=== PATIENT | female | born 1985 | race Caucasian/White ===

== ENCOUNTER 2020-07-03 15:44 | Emergency (ER) | payer OTHER ==
--- OUTSIDE RECORDS SUMMARY | 2020-07-03 15:47 | XMS REPORT | Clinical Summary ---
:1985 Author Organization [facility] Address [address] [place] [address] Care Team Providers Name Role Phone Asked, No Pcp Primary Care Provider Unavailable Allergies Active Allergy Reactions Severity Noted Date Comments Avocado Swelling 07/01/2019 No issues with latex per patient Avocado (Laurus Persea) Hives, Itching, 01/31/2018 S welling of the Swelling tongue. Dupilumab Unknown Reaction 12/30/2019 Fish Containing Hives, Rash, Swelling Low 01/31/2018 Swe lling of tongue. Products Flexon Unknown Reaction 04/14/2020 Iodine Anaphylaxis High 03/02/2020 Iodine And Iodide Anaphylaxis High 07/07/2019 Possible a llergy Containing Products with she llfish per patient [place] Swelling, Itching 01/31/2018 Tongue swe lling. Mold Unknown Reaction 04/02/2018 Nsaids (Non-Steroidal Hives, Shortness Of High 01/31/2018 Wheezing, difficulty Anti-Inflammatory Drug) Breath, Swelling breathing Swelling of the eyes. Omalizumab Anaphylaxis High 06/20/2019 Coughing, rash Orphenadrine Hcl Other (See Comments) 03/02/2020 Other Hives, Swelling, 01/31/2018 To muscle r elaxers Itching Muscle relaxer (dorflex -- mahnaz d only in [place]) . Penicillins Hives 01/31/2018 Unknown reactio n When she was younger. Pollen Extracts Swelling 07/07/2019 Shellfish Containing Anaphylaxis High 01/31/2018 Products Shellfish Derived Anaphylaxis, Swelling High 07/01/2019 Medications Medication Sig Dispensed Refills Start End Status Date Date ASMANEX HFA 200 3 Acti ve mcg/actuation HFA 9 aerosol inhaler budesonide-formoter Inhale 2 puffs 2 0 Active ol (SYMBICORT) (two) times a 160-4.5 day. mcg/actuation inhaler montelukast Take 10 mg by 0 Acti ve (SINGULAIR) 10 mg mouth nightly. tablet albuterol (PROAIR Inhale 2 puffs 0 Active HFA) 90 every 4 (four) mcg/actuation hours as needed inhaler for wheezing. tiotropium Place 1 capsule 0 Act marie (SPIRIVA) 18 mcg into inhaler and per inhalation inhale once capsule daily. LEVOFLOXACIN ORAL Take 720 mg by 0 Active mouth daily. azelastine 1 spray into 0 Active (ASTELIN) 137 mcg each nostril 2 (0.1 %) nasal spray (two) times a day. Use in each nostril as directed fluticasone 2 sprays by Each 0 A ctive propionate Nare route (FLONASE) 50 daily. mcg/actuation nasal spray UNABLE TO FIND Med Name: Pro 0 A ctive Air Respliclick epINEPHrine Inject 0.3 mg 0 Acti ve (EpiPen) 0.3 mg/0.3 into the 9 mL auto-injector shoulder, thigh, or buttocks. tiotropium bromide Inhale 2 puffs. 0 Active (Spiriva Respimat) 1.25 mcg/actuation mist albuterol (ACCUNEB) Inhale 2.5 mg. 0 07/22 Active 2.5 mg /3 mL (0.083 0 020 %) nebulizer solution budesonide U 2 ML VIA NEB 0 Acti ve (PULMICORT) 0.5 BID 0 mg/2 mL nebulizer solution cyclobenzaprine Take 5 mg by 0 A ctive (FLEXERIL) 5 mg mouth. 0 tablet fexofenadine TK 1 T PO BID 0 Act marie (ARTURO) 180 MG 0 tablet cetirizine (ZyrTEC) Take 10 mg by 0 Discontinued 10 MG tablet mouth every 020 (Med List morning. Cleanup) ondansetron ODT Take 1 tablet (8 30 tablet 0 (ZOFRAN ODT) 8 MG mg total) by 9 019 disintegrating mouth every 8 tablet (eight) hours as needed for nausea or vomiting for up to 30 days. clindamycin Take 1 capsule 21 capsule 0 Ex pired (CLEOCIN HCL) 300 (300 mg total) 9 019 MG capsule by mouth 3 (three) times a day for 7 days. acetaminophen-codei Take 1 tablet by 28 tablet 0 04/08 ne (TYLENOL WITH mouth every 4 9 019 CODEINE #3) 300-30 (four) hours as mg per needed for tabletIndications: moderate pain acute pain for up to 7 days .Acute Pain. predniSONE Take 3 tablets 15 tablet 0 Expi red (DELTASONE) 20 mg (60 mg total) by 0 020 tablet mouth daily for 5 days. albuterol (ACCUNEB) Take 3 mL (1.25 25 vial 12 12/07 1.25 mg/3 mL mg total) by 0 020 nebulizer nebulization solutionIndications every 6 (six) : Moderate asthma, hours as needed unspecified whether for wheezing for complicated, up to 30 days. unspecified whether persistent codeine-guaifenesin Take 10 mL by 100 mL 0 (GUAIFENESIN AC) mouth every 6 0 020 10-100 mg/5 mL (six) hours as liquidIndications: needed for cough acute pain for up to 7 days .acute pain. predniSONE Please take 40 32 tablet 0 Expi red (DELTASONE) 10 mg mg PO prednisone 0 020 tablet for 5 days, followed by 30 mg on days 6 &7, 20 mg on days 8 & 9, 10 mg on days 10 & 11, and 5 mg on days 12 & 13. oseltamivir Take 1 capsule 10 capsule 0 Ex pired (TAMIFLU) 75 MG (75 mg total) by 0 020 capsule mouth every 12 (twelve) hours for 5 days. Active Problems Problem Noted Date Bradycardia 02/12/2020 SOB (shortness of breath) 02/12/2020 Encounters Date Type Specialty Care Team Description 04/14/2020 Emergency Emergency Medicine Boyareddigari, Right l ower quadrant abdominal pain (Primary Dx); Vini Valladares MD Fibroids; Constipation, u nspecified constipation type 03/26/2020 Orders Only Cardiology ProviderEstuardo MD 03/25/2020 Telephone Consult Cardiology Ann Richtercar lorena Fournier MD 03/23/2020 Travel 03/15/2020 Travel 02/20/2020 Travel 02/16/2020 Travel 02/12/2020 Telemedicine Cardiology Ann Richter SOB (shortnes s of breath) (Primary Dx); MD Shantanu Bradycardia; Screening for l ipid disorders 02/06/2020 Travel 01/02/2020 Emergency Emergency Medicine Joseph Soto Moderate persistent asthma with exacerbation (Primary Dx); MD Bry Viral upper res piratory tract infection 01/02/2020 Travel 11/29/2019 Emergency Emergency Medicine Bryant Akbar Acute allergic reaction, initial encounter (Primary Dx); MD Blaine Moderate asthma , unspecified whether complicated, unspecified whether persistent 07/07/2019 Surgery Plastic Surgery Niki Hanks REVISION MD She SEPTOPLASTY, AL ITS, ENDOSCOPIC SINU S SURGERY W/ FUSI ON 07/07/2019 Anesthesia Event Plastic Surgery Erica Fang MD 07/07/2019 Hospital Encounter Plastic Surgery Niki Hanks Chron ic sinusitis; MD She Deviated nasal septum; Hypertrophy of nasal turbinates after 07/03/2019 Family History Medical History Relation Name Comments Heart attack Father Other Father Chagas Disease Stroke Father Migraines Mother Other Mother acid reflux Relation Name Status Comments Father Mother Social History Tobacco Use Types Packs/Day Years Used Date Never Smoker Smokeless Tobacco: Never Used Alcohol Use Drinks/Week oz/Week Comments Not Currently very rare Sex Assigned at Date Recorded Female 02/11/2020 11:43 AM CDT Last Filed Vital Signs Vital Sign Reading Time Taken Comments Blood Pressure 115/75 04/14/2020 6:42 PM CDT Pulse 58 04/14/2020 6:42 PM CDT Temperature 36.8 C (98.3 F) 04/14/2020 2:34 PM CDT Respiratory Rate 18 04/14/2020 6:42 PM CDT Oxygen Saturation 100% 04/14/2020 6:42 PM CDT Inhaled Oxygen Concentration - - Weight 65.8 kg (145 lb) 04/14/2020 2:34 PM CDT Height 167.6 cm (5' 6") 04/14/2020 2:34 PM CDT Body Mass Index 23.4 04/14/2020 2:34 PM CDT Plan of Treatment Health Maintenance Due Date Last Done Comments CERVICAL CANCER SCREENING 2004 INFLUENZA VACCINE 05/08/2020 Procedures Procedure Name Priority Date/Time Associated Comments Diagnosis US PELVIC STAT 04/14/2020 5:32 Results for this TRANSABDOMINAL PM CDT procedure are in the results section. US PELVIC TRANSVAGINAL STAT 04/14/2020 5:31 R esults for this PM CDT procedure are i n the results section. CT RENAL STONE PROTOCOL STAT 04/14/2020 3:54 Results for this PM CDT procedure are i n the results section. URINE CULTURE Routine 04/14/2020 3:18 Results fo r this PM CDT procedure are i n the results section. ESTIMATED GFR STAT 04/14/2020 3:10 Results fo r this PM CDT procedure are i n the results section. COMPREHENSIVE METABOLIC STAT 04/14/2020 3:10 Results for this PANEL PM CDT procedure are i n the results section. HC COMPLETE BLD COUNT STAT 04/14/2020 3:10 Re sults for this W/AUTO DIFF PM CDT procedure are i n the results section. HCG QUALITATIVE, URINE STAT 04/14/2020 3:05 R esults for this SCREEN PM CDT procedure are i n the results section. URINALYSIS STAT 04/14/2020 3:05 Results for this PM CDT procedure are i n the results section. CV CARDIAC EVENT Routine 03/26/2020 MONITOR TTE COMPLETE, W Routine 02/20/2020 3:34 SOB (shortness of Res ults for this CONTRAST, W DOPPLER PM CDT breath) procedur e are in (C8929) the results section. LIPID PANEL Routine 02/20/2020 12:00 Screening for Results fo r this AM CDT lipid disorders procedure ar e in the results section. B NATRIURETIC PEPTIDE Routine 02/20/2020 12:00 SOB (shortness of Results for this AM CDT breath) procedure are i n the results section. INFLUENZA ANTIGEN Routine 01/02/2020 9:49 Result s for this PM CDT procedure are i n the results section. RESPIRATORY PATHOGEN Routine 01/02/2020 9:48 Res ults for this PANEL PM CDT procedure are i n the results section. XR CHEST 2 VW STAT 01/02/2020 9:45 Results fo r this PM CDT procedure are i n the results section. MANUAL DIFFERENTIAL STAT 01/02/2020 9:36 Resu lts for this PM CDT procedure are i n the results section. ESTIMATED GFR STAT 01/02/2020 9:36 Results fo r this PM CDT procedure are i n the results section. B NATRIURETIC PEPTIDE STAT 01/02/2020 9:36 Re sults for this PM CDT procedure are i n the results section. CBC WITH PLATELET AND STAT 01/02/2020 9:36 Re sults for this DIFFERENTIAL PM CDT procedure are i n the results section. COMPREHENSIVE METABOLIC STAT 01/02/2020 9:36 Results for this PANEL PM CDT procedure are i n the results section. ESTIMATED GFR STAT 11/29/2019 1:30 Results fo r this PM INVESTIGATOR procedure are i n the results section. BASIC METABOLIC PANEL STAT 11/29/2019 1:30 Re sults for this PM INVESTIGATOR procedure are i n the results section. HC COMPLETE BLD COUNT STAT 11/29/2019 1:30 Re sults for this W/AUTO DIFF PM INVESTIGATOR procedure are i n the results section. SURGICAL PATHOLOGY Routine 07/07/2019 11:16 Resul ts for this REQUEST AM CDT procedure are i n the results section. AL AN ELECTIVE Routine 07/07/2019 8:31 Results f or this ENDOTRACHEAL AIRWAY AM CDT procedur e are in the results section. SINUS SURGERY, 07/07/2019 7:55 Chronic sinusit is ENDOSCOPIC AM CDT Deviated nasal septum Hypertrophy of nasal turbinates Special Needs EST 3HRS, FUSION after 07/03/2019 Results US Pelvic Transabdominal (04/14/2020 5:32 PM CDT) Specimen Narrative Performed At EXAMINATION: US PELVIC TRANSABDOMINAL, US PELVIC TRANSVAGINAL [facility] CLINICAL HISTORY: right pelvic pain COMPARISON: None. TECHNIQUE:Transabdominal and endovaginal sonographic i mages of the pelvis were obtained. Grayscale, color Doppler, and sp ectral waveform analysis of the ovarian vessels was perf ormed. FINDINGS: The uterus is heterogeneous in echotexture. At least 2 intramural fibroids are seen measuring 1.8 x 1.1 x 1.1 cm and 0.9 x 1.4 x 1.1 cm. The uterus measures 10.2 x 4.1 x 5.4 cm. . An IUD is noted and appears to be in satisfactory plac ement. The endometrial stripe is unremarkable and m easures 2.7 mm.. The left ovary is not seen. Scattered right ovarian fo llicles are noted. The right ovary is otherwise unremarkable. The right ovary measures 2.9 x 2 x 2.4 cm. Normal Doppler flow wa s present. There is no fluid in the pelvic cul-de-s ac. Impression: Unremarkable transabdominal and endovaginal pelvic ult rasound examination with the exception of uterin e fibroids. [id number] Procedure Note Hm Interface, Radiology Results Incoming - 04/14/2020 5:39 PM CDT EXAMINATION: US PELVIC TRANSABDOMINAL, US PELVIC TRANSVAGINAL CLINICAL HISTORY: right pelvic pain COMPARISON: None. TECHNIQUE:Transabdominal and endovaginal sonographic images of the pelvis were obtained. Grayscale, color Doppler, and spectral waveform analysis of the ovarian vessels was performed. FINDINGS: The uterus is heterogeneous in echotextu re. At least 2 intramural fibroids are seen measuring 1.8 x 1.1 x 1.1 cm and 0.9 x 1.4 x 1.1 cm. The uterus measures 10.2 x 4.1 x 5.4 cm.. An IUD is noted and appears to be in sat isfactory placement. The endometrial stripe is unremarkable and measures 2.7 mm.. The left ovary is not seen. Scattered ri ght ovarian follicles are noted. The right ovary is otherwise unremarkable. The right ovary measures 2.9 x 2 x 2.4 cm. Normal Doppler flow was present. There is no fluid in the pelvic cul-de-s ac. Impression: Unremarkable transabdominal and endovagi nal pelvic ultrasound examination with the exception of uterine fibroids. [id number] Performing Organization Address City/State/ZIP Code Phon e Number [facility] [address] [place] [address] US Pelvic Transvaginal (04/14/2020 5:31 PM CDT) Specimen Narrative Performed At EXAMINATION: US PELVIC TRANSABDOMINAL, US PELVIC TRANSVAGINAL [facility] CLINICAL HISTORY: right pelvic pain COMPARISON: None. TECHNIQUE:Transabdominal and endovaginal sonographic i mages of the pelvis were obtained. Grayscale, color Doppler, and sp ectral waveform analysis of the ovarian vessels was perf ormed. FINDINGS: The uterus is heterogeneous in echotexture. At least 2 intramural fibroids are seen measuring 1.8 x 1.1 x 1.1 cm and 0.9 x 1.4 x 1.1 cm. The uterus measures 10.2 x 4.1 x 5.4 cm. . An IUD is noted and appears to be in satisfactory plac ement. The endometrial stripe is unremarkable and m easures 2.7 mm.. The left ovary is not seen. Scattered right ovarian fo llicles are noted. The right ovary is otherwise unremarkable. The right ovary measures 2.9 x 2 x 2.4 cm. Normal Doppler flow wa s present. There is no fluid in the pelvic cul-de-s ac. Impression: Unremarkable transabdominal and endovaginal pelvic ult rasound examination with the exception of uterin e fibroids. [id number] Procedure Note Interface, Radiology Results Incoming - 04/14/2020 5:39 PM CDT EXAMINATION: US PELVIC TRANSABDOMINAL, US PELVIC TRANSVAGINAL CLINICAL HISTORY: right pelvic pain COMPARISON: None. TECHNIQUE:Transabdominal and endovaginal sonographic images of the pelvis were obtained. Grayscale, color Doppler, and spectral waveform analysis of the ovarian vessels was performed. FINDINGS: The uterus is heterogeneous in echotextu re. At least 2 intramural fibroids are seen measuring 1.8 x 1.1 x 1.1 cm and 0.9 x 1.4 x 1.1 cm. The uterus measures 10.2 x 4.1 x 5.4 cm.. An IUD is noted and appears to be in sat isfactory placement. The endometrial stripe is unremarkable and measures 2.7 mm.. The left ovary is not seen. Scattered ri ght ovarian follicles are noted. The right ovary is otherwise unremarkable. The right ovary measures 2.9 x 2 x 2.4 cm. Normal Doppler flow was present. There is no fluid in the pelvic cul-de-s ac. Impression: Unremarkable transabdominal and endovagi nal pelvic ultrasound examination with the exception of uterine fibroids. [id number] Performing Organization Address City/State/ZIP Code Phon e Number [facility] [id number] [place] [address] CT Renal Stone Protocol (04/14/2020 3:54 PM CDT) Specimen Narrative Performed At EXAMINATION: CT RENAL STONE PROTOCOL [facility] CLINICAL HISTORY: Flank pain stone d isease suspected TECHNIQUE: Multiple axial images of the abdomen and pe lvis were obtained without intravenous administration of iodinated contra st. Sagittal and coronal computerized reformatted images were also obta ined. The lack of intravenous contrast reduces the sensitivity of detecting solid organ disease. CT imagi ng was performed with iterative reconstruction technique and/or automat ed exposure control to reduce radiation dose. COMPARISON: None. FINDINGS: The lung bases are clear. No free intrap eritoneal air or fluid. Abdomen: Punctate calcified granuloma inferior aspect right lo be liver. Liver otherwise grossly unremarkable noncontra st exam. Spleen unremarkable. Gallbladder grossly unremarkable. No lauri iary dilatation. Adrenal glands normal size. Pancreas normal in gross appearance. Abdominal aorta normal caliber. No abdom inal adenopathy. Scattered fecal material in the colon. No bowel obstru ction or distention in the abdomen. Kidneys are normal in size. Punctate less than 3 mm no nobstructing calyceal calculus on the right. No hydronephrosis on either side. No obv ious renal mass. Pelvis: Surgical clips medial to the cecum. Suspect post appe ndectomy change. The appendix is not seen. Moderate fecal material throughout the colon. No bowel obstruction. No diverticulitis. Uterus is enlarged to 10.4 cm. An IUD ap pears well placed. No adnexal mass identified. Urinary bladder grossly unremarkable. No pelvic mass or sidewall adenopathy. The visualized skeleton is intact IMPRESSION: Punctate nonobstructing intrarenal calcu kyleigh on the right. No hydronephrosis on either side. Postappendectomy changes. No diverticulitis or bowel obstruction Moderate fecal material throughout the c olon Enlarged uterus to 10.4 cm [id number] Procedure Note Interface, Radiology Results Incoming - 04/14/2020 4:09 PM CDT EXAMINATION: CT RENAL STONE PROTOCOL CLINICAL HISTORY: Flank pain stone dis ease suspected TECHNIQUE: Multiple axial images of the abdomen and pelvis were obtained without intravenous administration of iodinated contrast. Sagittal and coronal computerized reformatted images were also obtained. The lack of intravenous contrast reduces the sensitivity of detecting solid organ dis ease. CT imaging was performed with iterative reconstruction technique and/or automated exposure control to reduce radiation dose. COMPARISON: None. FINDINGS: The lung bases are clear. No free intrap eritoneal air or fluid. Abdomen: Punctate calcified granuloma inferior a spect right lobe liver. Liver otherwise grossly unremarkable noncontrast exam. Spleen unremarkable. Gallbladder grossly unremarkable. No lauri iary dilatation. Adrenal glands normal size. Pancreas normal in gross appearance. Abdominal aorta normal caliber. No abdom inal adenopathy. Scattered fecal material in the colon. N o bowel obstruction or distention in the abdomen. Kidneys are normal in size. Punctate les s than 3 mm nonobstructing calyceal calculus on the right. No hydronephrosis on either side. No obv ious renal mass. Pelvis: Surgical clips medial to the cecum. Any pect post appendectomy change. The appendix is not seen. Moderate fecal material throughout the c olon. No bowel obstruction. No diverticulitis. Uterus is enlarged to 10.4 cm. An IUD ap pears well placed. No adnexal mass identified. Urinary bladder grossly unremarkable. No pelvic mass or sidewall adenopathy. The visualized skeleton is intact IMPRESSION: Punctate nonobstructing intrarenal calcu kyleigh on the right. No hydronephrosis on either side. Postappendectomy changes. No diverticulitis or bowel obstruction Moderate fecal material throughout the c olon Enlarged uterus to 10.4 cm [id number] Performing Organization Address City/State/ZIP Code Phon e Number [address] [address] Urine culture (04/14/2020 3:18 PM CDT) Pathologist [facility] Urine culture Mixed jenacarlos <=10-3 col/cc [facility] IST isolate Comment: HOSPITAL Specimen Information Specimen Source: Urine Specimen Site: Urine, clean catch Specimen Urine - Urine, clean catch Performing Organization Address City/State/ZIP Code Phon e Number [facility] DEPARTMENT OF PATHOLOGY AND [address] [place] [phone] GENOMIC MEDICINE [address] [address] Estimated GFR (04/14/2020 3:10 PM CDT)Only the most recent of3 resultswithin the time period is included. Estimated GFR >=90 mL/min/1.73 [facility] Comment: m2 [facility] Catergory Units Interpretation [facility] G1 >=90 Normal or high G2 60-89 Mildly decreased G3a 45-59 Mildly to moderately decreas ed G3b 30-44 Moderately to severely decre ased G4 15-29 Severely decreased G5 <15 Kidney failure The eGFR was calculated using the Chronic Kidney Disea se Epidemiology Collaboration (CKD-EPI) equation. Interpretation is based on recommendations of the National Kidney Foundation-Kidney Disease Outcomes Karson lity Initiative (NKF-KDOQI) published in 2014. Specimen Performing Organization Address City/State/ZIP Code Phon e Number DEPARTMENT OF PATHOLOGY [address] [facility] [place] [address] AND GENOMIC MEDICINE, [place] [address] EMERGENCY CARE [facility] [address] [place], [place] [address] EM[facility]ARE CENTER CBC with platelet and differential (04/14/2020 3:10 PM CDT)Only the most recent of3 resultswithin the time period is included. Pathologist Sig nature WBC 7.78 4.50 - 11.00 k/uL [facility] RBC 4.37 4.20 - 5.50 m/uL [facility] HGB 13.4 12.0 - 16.0 g/dL [facility] HCT 39.5 37.0 - 47.0 % [facility] MCV 90.4 82.0 - 100.0 fL [facility] MCH 30.7 27.0 - 34.0 pg [facility] MCHC 33.9 31.0 - 37.0 g/dL [facility] RDW - SD 42.0 37.0 - 55.0 fL [facility] MPV 11.5 8.8 - 13.2 fL [facility] Platelet count 206 150 - 400 k/uL [facility] Neutrophils 60.9 39.0 - 69.0 % [facility] Lymphocytes 31.4 25.0 - 45.0 % [facility] Monocytes 4.6 0.0 - 10.0 % [facility] Eosinophils 2.6 0.0 - 5.0 % [facility] Basophils 0.5 0.0 - 1.0 % [facility] Specimen Blood Performing Organization Address City/[facility]/ZIP [facility] Phon e Number DEPARTMENT OF PATHOLOGY [address] [place] [address] Comprehensive metabolic panel (04/14/2020 3:10 PM CDT)Only the most recent of2 resultswithin the time period is included. Pathologist Sig nature Sodium 138 135 - 148 mEq/L [facility] Potassium 4.0 3.5 - 5.0 mEq/L [facility] Chloride 105 98 - 112 mEq/L [facility] CO2 23 (L) 24 - 31 mEq/L [facility] Anion gap 10@ANIO 7 - 15 mEq/L [facility] BUN 10 6 - 20 mg/dL [facility] Creatinine 0.73 0.50 - 0.90 [facility] mg/dL [facility] Glucose 89 65 - 99 mg/dL [facility] Calcium 9.3 8.3 - 10.2 mg/dL [facility] Protein 6.8 6.3 - 8.3 g/dL [facility] Albumin 4.3 3.5 - 5.0 g/dL [facility] A/G ratio 1.7 0.7 - 3.8 [facility] Alkaline phosphatase 45 35 - 104 U/L [facility] AST 20 10 - 35 U/L [facility] ALT 15 5 - 50 U/L [facility] Total bilirubin 0.6 0.0 - 1.2 mg/dL [facility] Specimen Blood Performing Organization Address City/State/ZIP Code Phon e Number DEPARTMENT OF PATHOLOGY [address] [place] [address] AND [place] [id number] [facility] [address] [place] [phone] [facility] Urinalysis (04/14/2020 3:05 PM CDT) Pathologist Sig nature Glucose, UA Negative Negative [facility] Bilirubin, UA Negative Negative [facility] Ketones, UA Negative Negative [facility] Specific gravity, UA 1.020 1.001 - 1.035 [facility] Blood, UA Trace (A) Negative [facility] pH, UA 7.0 5.0 - 8.5 [facility] Protein, UA Negative Negative [facility] Urobilinogen, UA <2.0 <2.0 [facility] Nitrite, UA Negative Negative [facility] Leukocyte esterase, Negative Negative [facility] Color, UA Yellow [facility] Appearance, UA Clear [facility] Specimen Urine Performing Organization Address City/[facility]/ZIP Code Phon e Number DEPARTMENT OF PATHOLOGY [address] [place] [address] [address] hCG qualitative, urine screen (04/14/2020 3:05 PM CDT) hCG qualitative, Negative [facility] urine Comment: [facility] Sensitivity of HCG test: 25 mIU/mL [facility] Negative test results in patients suspected to be should be retested with a sample obtained 48-72 hours later, or by performing a quantitative assay. Specimen Urine Performing Organization Address City/[facility] [facility]on [facility] Number DEPARTMENT OF PATHOLOGY [address] [place] [address] CV Cardiac event monitor (03/26/2020) Narrative Performed At This result has an attachment that is no t available. Transthoracic Echocardiogram Complete, (w Contrast, Strain and 3D if needed) (02/20/2020 3:34 PM CDT) Specimen Narrative Performed At [facility] Echo cardiography Report Pat.Name: LUCIUS BRYAN Pat.ID: [id number] .Date: 02/20/2020 Refer.MD: ANN RICHTER MD Exam Time: 2:29:00 PM Study Type:R leilani Echo Height: 66in Weight: 142lb BSA: 1.73 m2 Ag e: 1985,34Y Sex: FEMALE BP: 131/72 HR: 62 bpm Sonogr phr: CARY Hernandes Pat. Stat.:Outpatient Room: [facility] Study Status:Final Echo Event ID:[id number] Order ID: [id number] Reason for Study:SOB (shortness of breat h) [R06.02] Procedures: 2D Echo, Colorflow Doppler, Strain Race: SUMMARY: Normal 2D and Doppler examination FINDINGS: LV: LV size is normal. Normal a verage LV global longitudinal strain at -20.1%. LV EF i s normal. Overall wall motion is normal. Estimated EF is 6 5-69% RV: RV size is normal. RV systo lic function is normal. LA: LA volume is normal. RA: RA volume is normal. AO: Aortic root diameter is nor mal. SHIREEN: No pericardial effusion. AV: No structural AV abnormalit ies noted. MV: No structural MV abnormalit ies noted. A trace of mitral regurgitation. PV: Pulmonic valve not well see n. TV: No structural TV abnormalit ies noted. A trace of tricuspid regurgitation [place]: Normal diastolic function an d LV filling pressures. Other: Estimated PA systolic pressu re is 24 mmHg, assuming a mean RAP of 5 mmHg. MEASUREMENTS: 2D Parasternal [place] Ao An 1.9 cm LVPWd 0.79 cm Ao Rtd 2.9 cm Index 1.7 cm/m2 LA Ds 2.8 cm IVSd 0.59 cm RWT 0.4 LVIDd 4 cm Index 2.3 cm/m2 LV Mass 77 g (87-12 9) LVIDs 2.4 cm LVOT 1.9 cm LV%fs 40 % Left Ventricle LVM Index 45 g/m LA Sng Plane LA Area 11 cm (8.8-23.4) LA Vol 26 ml Index 15 ml/m2 LA LngAx 3.9 cm RA Sng Plane RA Vol 23 ml Index 13 ml/m2 RA LngAx 4.1 cm RA Area 11 cm (8.3-1 9.5) LVOT LVOT Area 2.7 cm DOPPLER LVOT Stroke Vol LVOT TVI 24 cm LVOT LVOT SV 64 ml SVi 37 ml/m Signed 02/20/2020 04:39 PM Jerod Jones MD Procedure Note Interface, Radiology Results In - 2019 4:39 PM CDT [facility] Echocardiography Report Pat.Name: MAODARLENE CAMPOS Pat.ID: [id number] .Date: 02/20/2020 Refer .MD: ANN RICHTER MD Exam Time: 2:29:00 PM Study Type:Routine Echo Height: 66in Weigh t: 142lb BSA: 1.73 m2 Age: 6 1985,34Y Sex: FEMALE BP: 131/72 HR: 62 bpm Sonog rphr: CARY Hernandes Pat. Stat.:Outpatient Room: [facility] Study Status:Final Echo Event ID:[id number] Order ID: [id number] Reason for Study:SOB (shortness of breat h) [R06.02] Procedures: 2D Echo, Colorflow Doppler, Strain Race: SUMMARY: Normal 2D and Doppler examination FINDINGS: LV: LV size is normal. Normal aver age LV global longitudinal strain at -20.1%. LV EF is nor mal. Overall wall motion is normal. Estimated EF is 65-69% RV: RV size is normal. RV systolic function is normal. LA: LA volume is normal. RA: RA volume is normal. AO: Aortic root diameter is normal . SHIREEN: No pericardial effusion. AV: No structural AV abnormalities noted. MV: No structural MV abnormalities noted. A trace of mitral regurgitation. PV: Pulmonic valve not well seen. TV: No structural TV abnormalities noted. A trace of tricuspid regurgitation Montgomery: Normal diastolic function and LV filling pressures. Other: Estimated PA systolic pressure is 24 mmHg, assuming a mean RAP of 5 mmHg. MEASUREMENTS: 2D Parasternal [place] Ao An 1.9 cm LVPW d 0.79 cm Ao Rtd 2.9 cm Inde x 1.7 cm/m2 LA Ds 2.8 cm IVSd 0.59 cm RWT 0.4 LVIDd 4 cm Inde x 2.3 cm/m2 LV Mass 77 g (87-129) LVIDs 2.4 cm LVOT 1.9 cm LV%fs 40 % Left Ventricle LVM Index 45 g/m LA Sng Plane LA Area 11 cm (8.8-23.4) L A Vol 26 ml Index 15 ml/m2 LA LngAx 3.9 cm RA Sng Plane RA Vol 23 ml Inde x 13 ml/m2 RA LngAx 4.1 cm RA Area 11 cm (8.3-19.5) LVOT LVOT Area 2.7 cm DOPPLER LVOT Stroke Vol LVOT TVI 24 cm LVOT LVOT SV 64 ml SVi 37 ml/m Signed 02/20/2020 04:39 PM Jerod Jones MD Performing Organization Address City/State/ZIP Code Phon e Number [facility] [id number] [place] [address] B natriuretic peptide (02/20/2020 12:00 AM CDT)Only the most recent of2 results within the time period is included. Pathologist Sig nature BNP 6 <100 pg/mL [facility] Comment: [place] BNP levels increase with age in the general population with the highest values seen in individuals greater than 75 years of age. Reference: J. Am. Jolie. Cardiol. 2002; 40:976-982. Specimen Blood Resulting Agency Comment Performing Organization Information: Site ID: [id number] Name: [facility] Address: [address] [place] [id number] Director: Eyad Queen Performing Organization Address City/[facility]/ZIP Code Phon e Number [facility] [place] [address] Lipid panel (02/20/2020 12:00 AM CDT) Cholesterol, total 197 <200 mg/dL [facility] [place] HDL cholesterol 50 > OR = 50 [facility] mg/dL [place] Triglycerides 95 <150 mg/dL [facility] [place] LDL cholesterol 127 (H) mg/dL (calc) [facility] calculated Comment: [place] Reference range: <100 Desirable range <100 mg/dL for primary prevention; <70 mg/dL for patients with CHD or diabetic patients with > or = 2 CHD risk factors. LDL-C is now calculated using the Shantanu-Linda calculation, which is a validated novel method providi ng better accuracy than the Friedewald equation in the estimation of LDL-C. Shantanu SS et al. RICHAR. 2013;310(19): 2862-5188 (http://education.XtremIO.Loginza/faq/YED560) Cholesterol/HDL 3.9 <5.0 (calc) [facility] ratio [place] Non-HDL cholesterol 147 (H) <130 mg/dL [facility] Comment: (calc) [place] For patients with diabetes plus 1 major ASCVD risk factor, treating to a non-HDL-C goal of <100 mg/dL (LDL-C of <70 mg/dL) is considered a therapeutic option. Specimen Blood Resulting Agency Comment Performing Organization Information: Site ID: RGA Name: [facility] Address: [address] [place] [address] Director: Eyad Queen Performing Organization Address City/[facility] Code Phon e Number [facility] [place] [address] [place] [address] Influenza antigen (01/02/2020 9:49 PM CDT) Influenza antigen Negative for Influenza A/B antigen. [facility] Comment: [facility] Specimen [facility] Specimen Source: Nares Specimen Site: Left Specimen Nares - Left Performing Organization Address City/[facility] Phon e Number DEPARTMENT OF PATHOLOGY [address] [facility] [place] [address] AND GENOMIC MEDICINE, [place] [address] [facility] [address] [facility] [address] [place], [place] [address] [facility] Respiratory pathogen panel (01/02/2020 9:48 PM CDT) Respiratory Positive for Rhinovirus/Enterovirus [facility] ON pathogen panel [place] Negative for all other pathogens tested: HOSPITAL Negative for Adenovirus Negative for Coronavirus HKU1 Negative for Coronavirus NL63 Negative for Coronavirus 229E Negative for Coronavirus OC43 Negative for Human Metapneumovirus Negative for Influenza A Negative for Influenza A/H1 Negative for Influenza A/H3 Negative for Influenza A/H1-2009 Negative for Influenza B Negative for Parainfluenza Virus 1 Negative for Parainfluenza Virus 2 Negative for Parainfluenza Virus 3 Negative for Parainfluenza Virus 4 Negative for Respiratory Syncytial Virus Negative for Bordetella pertussis Negative for Chlamydophila pneumoniae Negative for Mycoplasma pneumoniae This real-time PCR assay detects the presence of nucle ic acids (RNA or DNA) for the respiratory pathogens liste d. A result of "Not-detected" does not exclude the possib ility of the presence of one or more pathogens at concentrat ions less than the detectable limits of the assa (A) Comment: Specimen Information Specimen Source: Nares Specimen Site: Left Specimen Nares - Left Performing Organization Address City/State/[facility] Phon e Number [facility] DEPARTMENT OF PATHOLOGY AND [address] [place] [address] [address] [address] XR Chest 2 Vw (01/02/2020 9:45 PM CDT) Specimen Narrative Performed At EXAMINATION: XR CHEST 2 VW HM [facility] CLINICAL HISTORY: Shortness of breath COMPARISON: None available. TECHNIQUE: PA and lateral FINDINGS: 1. No focal airspace consolidation, pleu ral effusion or pneumothorax. 2. Normal cardiomediastinal silhouette a nd pulmonary vascularity. 3. No acute or suspicious osseous abnorm ality. IMPRESSION: No acute cardiopulmonary abnormality. [facility]-[id number] Procedure Note Hm Interface, Radiology Results Incoming - 01/02/2020 10:01 PM CDT EXAMINATION: XR CHEST 2 VW CLINICAL HISTORY: Shortness of breath COMPARISON: None available. TECHNIQUE: PA and lateral FINDINGS: 1. No focal airspace consolidation, pleu ral effusion or pneumothorax. 2. Normal cardiomediastinal silhouette a nd pulmonary vascularity. 3. No acute or suspicious osseous abnorm ality. IMPRESSION: No acute cardiopulmonary abnormality. [facility]-[id number] Performing Organization Address [facility] Phon e Number [facility] [address] [place] [address] Manual differential (01/02/2020 9:36 PM CDT) Manual differential PERFORMED [facility] Neutrophils 78.0 (H) 39.0 - 69.0 % [facility] Lymphocytes 16.0 (L) 25.0 - 45.0 % [facility] Monocytes 6.0 0.0 - 10.0 % [facility] Eosinophils 0.0 0.0 - 5.0 % [facility] Basophils 0.0 0.0 - 1.0 % [facility] Metamyelocytes 0 % [facility] Promyelocytes 0 % [facility] Platelet slide review Roámn adequate [facility] Specimen Performing Organization Address [facility]/ZIP Code Phon e Number [facility] DEPARTMENT OF PATHOLOGY [address] [place] [address] AND GENOMIC MEDICINE [address] [address] [facility] [address] [place], [place] [address] [address] [place] [address] [facility] Basic metabolic panel (11/29/2019 1:30 PM INVESTIGATOR) Pathologist Sig nature Sodium 139 135 - 148 mEq/L [facility] Potassium 3.6 3.5 - 5.0 mEq/L [facility] Chloride 107 98 - 112 mEq/L [facility] CO2 21 (L) 24 - 31 mEq/L [facility] Anion gap 11@ANIO 7 - 15 mEq/L [facility] BUN 14 6 - 20 mg/dL [facility] Creatinine 0.74 0.50 - 0.90 mg/dL [facility] Glucose 95 65 - 99 mg/dL [facility] Calcium 9.4 8.3 - 10.2 mg/dL [facility] Specimen Plasma specimen Performing Organization Address City/[facility] Code Phon e Number DEPARTMENT OF PATHOLOGY [address] [place] [address] AND GENOMIC MEDICINE, [facility] [address] [place] [place] [id number] [facility] [address] [place] [address] [facility] Surgical pathology request (07/07/2019 11:16 AM CDT) [facility] DEPARTMENT OF PATHOLOGY AND GENOMIC MEDICINE Surgical pathology See link below [facility] DEPARTMENT OF report for PDF Lab PATHOLOGY AND Report GENOMIC MEDICINE Result status This is Final [facility] DEPARTMENT OF Report for PATHOLOGY AND [id number] GENOMIC MEDICINE Specimen Performing Organization Address City/[facility] Phon e Number [facility] DEPARTMENT OF PATHOLOGY AND [address] [place], [place] [address] 0 GENOMIC MEDICINE Airway (07/07/2019 8:31 AM CDT) Narrative Performed At Isrrael Hurt CRNA 07/07/2019 8: 32 AM Airway Performed by: Isrrael Hurt CRNA Authorized by: Erica Fang MD Location: OR Urgency: Elective Difficult Airway: No Resident/FISH INSPECTOR/AA: Isrrael Hurt CRNA Performed by: resident/FISH INSPECTOR/AA Preoxygenated with 100% O2: Yes C-spine Precautions Maintained Throughou t: Yes Mask Ventilation: Easy mask Final Airway Type: Endotracheal airway Final Endotracheal Airway: ETT and stefano nforced tube Cuffed: Yes Technique Used: Direct laryngoscopy Devices/Methods Used in Placement: Int ubating stylet Insertion Site: Oral Blade Type: Blake Laryngoscope Blade/Videolaryngoscope Ji vaz Size: 2 ETT Size (mm): 6.5 Cuff at minimum occlusion pressure: Yes Measured from: Teeth ETT to Teeth (cm): 20 Placement Verified by: CO2 detection, di rect visualization and equal breath sounds Laryngoscopic view: Grade I - full vie w of glottis Rapid Sequence Induction (RSI): No Modified RSI: No Number of Attempts at Approach: 1 Atraumatic after 07/03/2019 Insurance Payer Benefit Plan / Subscriber ID Effective Dates Phone Addre ss Type Group [employer] [facility] [id number] 2019-[employer] CHOICE EXCHANGE EXCHANGE t MARKETPLACE Advance Directives For more information, please contact: [phone] Type Date Recorded Patient Bi Manager Explanati on Advance Directives, Living Will 07/07/2019 6:24 AM and Medical Power of [place] Supervisor
--- OUTSIDE RECORDS SUMMARY | 2020-07-03 15:47 | XMS REPORT | Continuity of Care Document ---
:1985 Author Organization [facility] Care Team Providers Name Role Phone [facility] Unavailable Un available Problems Problem Status Onset Classification Date Comments Sourc e Date Reported J32.9 - Active OPID "CHRONIC 7 [place]ell SINUSITIS, UNSPECIFIED" Medications No Data Provided for This Section Allergies, Adverse Reactions, Alerts No Known Medication Allergies Immunizations No Data Provided for This Section Results No Data Provided for This Section Pathology Reports No Data Provided for This Section Diagnostic Reports Report Value Date Source Sinus wo contrast CT CT SINUSES 04/12/2017 [facility] Her deshpande DATE: 04/12/2017 at 5:40 PM. HISTORY: Chronic sinusitis. TECHNIQUE: Axial images were obtained through the paranasal sinuses at 2 mm intervals in the unenhanced mode. Sagittal and coronal reformatted images were also provided. DLP: mGy-cm. Frontal sinuses: The frontal sinuses are well aerated and clear. The frontal recesses are patent. Ethmoid sinuses: Ethmoid sinuses are well aerate d and clear. Sphenoid sinuses: Sphenoid s inuses are well aerated and clear. The sphenoethmoidal recesses are patent. Maxillary sinuses: Maxillary sinuses are well aerated and clear. The septae are noted within the maxillary sinuses bilaterally, a normal variant. Ostiomeatal complexes: The o stiomeatal complexes are clear and patent bilaterally.. Nasal cavity: The nasal cavities clear. The nasa l septum is midline. There is an approximately 1. 7 x 1.2 x 1.2 cm cyst involving the roots of tooth #9 consistent with an odontogenic cyst such as odontogenic keratocyst. IMPRESSION: 1. No sinusitis, normal computed tomography scan of the sinuses. 2. 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 Consultation Notes No Data Provided for This Section Discharge Summaries No Data Provided for This Section History and Physicals No Data Provided for This Section Vital Signs No Data Provided for This Section Encounters Location Location Encounter Encounter Reason Attending ADM DC Stat us Source Details Type Number For Provider Date Date Visit [facility] Outpt Diag [id number] Bry 04/12 04/13 MARGARITA CARABALLO [facility] [place] Procedures No Data Provided for This Section Assessment and Plan No Data Provided for This Section Plan of Care No Data Provided for This Section Social History Social History Date Source No data available for this 04/13/2017 MARGARITA Flores nn section Family History No Data Provided for This Section Advance Directives No Data Provided for This Section Functional Status No Data Provided for This Section
--- OUTSIDE RECORDS SUMMARY | 2020-07-03 15:47 | XMS REPORT | Clinical Summary ---
:1985 Author Organization [facility] Address [address] [place] [address] Care Team Providers Name Role Phone Rima Gupta MD Primary Care Provider Unava ilable Allergies Active Allergy Reactions Severity Noted Date Comments Avocado (Laurus Persea) Hives, Itching, 01/31/2018 S welling of the Swelling tongue. Fish Containing Hives, Swelling, Rash Low 01/31/2018 Swe lling of tongue. Products [place] Itching, Swelling 01/31/2018 Tongue swe lling. Mold 04/02/2018 Nsaids (Non-Steroidal Hives, Swelling 01/31/2018 Swe lling of the Anti-Inflammatory Drug) eyes . Other Itching 01/31/2018 Muscle relaxer (dorflex -- mahnaz d only in [place]) . Penicillins 01/31/2018 When she was younger. Shellfish Containing Anaphylaxis High 01/31/2018 Products Omalizumab Other (See Comments) Medium 06/20/2019 Coughin g, rash Medications Medication Sig Dispensed Refills Start Date End Date Status albuterol sulfate Inhale by mouth via 0 Active (PROAIR RESPICLICK inhaler 4 (four) times INHL) daily And 6 times a day prn. cetirizine Take 10 mg by mouth 0 Active (ZYRTEC) 10 MG daily. tablet montelukast Take 10 mg by mouth 0 Active (SINGULAIR) 10 mg nightly 20 mg daily tablet prn. fluticasone SPRAY TWICE IEN QD 3 01/31/2018 Active (FLONASE) 50 mcg/actuation nasal spray ASMANEX HFA 200 INHALE 2 PUFFS PO BID 3 01/03/2018 Active mcg/actuation HFAA HFA inhaler budesonide-formote Inhale 2 puffs by 0 Active rol (SYMBICORT) mouth via inhaler 2 160-4.5 (two) times daily. mcg/actuation inhaler EPINEPHrine Inject 0.3 mLs (0.3 mg 1 Device 0 06/20/2019 Active (EPIPEN) 0.3 total) intramuscularly mg/0.3 mL AtIn as needed (Severe allergic reaction, respiratory distress or swelling of lips/tongue/throat). Active Problems Patient Care Coordination Note Interim Test: 2D Echo, 03/08/18 Summary Essentially normal exam. Regular sinus rhythm during the exam. No congenital heart disease identified . Normal left ventricular chamber size. Normal wall thickness. Normal overall left ventricular systolic func tion. No apparent segmental wall motion abnormalities. Normal diastolic function. LVEF by Perez's method of disk asses sment is normal (>60%) . No congenital heart disease identified . Problem Noted Date Anaphylactic reaction 06/21/2019 Cardiac murmur 04/02/2018 Encounters Date Type Specialty Care Team Description 02/16/2020 Orders Only Transplant Marci Blake, store specialist mu rmur (Primary Dx); Palpitations 10/29/2019 Documentation Central Scheduling WeinbergRima after 07/03/2019 Family History Medical History Relation Name Comments Heart disease Father No Known Problem Mother Relation Name Status Comments Father Mother Social History Tobacco Use Types Packs/Day Years Used Date Never Smoker Smokeless Tobacco: Never Used Alcohol Use Drinks/Week oz/Week Comments No Sex Assigned at Date Recorded Female 06/15/2020 10:43 AM CDT Job Start Date Occupation Industry Not on file Not on file Not on file Travel History Travel Start Travel End No recent travel history available. Last Filed Vital Signs Not on file Plan of Treatment Health Maintenance Due Date Last Done Comments PNEUMOCOCCAL VACCINE 2-64 YEARS AT RISK (1 of 1 - 1989 PPSV23) CERVICAL CANCER SCREENING PAP ONLY (Age 21-65) 2004 INFLUENZA VACCINE (#1) 2020 Results Not on fileafter 07/03/2019 Advance Directives For more information, please contact:[address] [phone] Code Status Date Activated Date Inactivated Comments Full Code 06/21/2019 5:45 PM 06/23/2019 4:57 PM This code status was determined by: Patient
--- OUTSIDE RECORDS SUMMARY | 2020-07-03 15:49 | XMS REPORT | Continuity of Care Document ---
:1985 Author Organization [facility] t Address [address] [place] [address] Care Team Providers Name Role Phone Dot Knott MD, Rima Leblanc Primary Care Physician Unav ailable Agapito White Attending Clinician MELINDA Attending Clinician Unavailable CO19 Attending Clinician Unavailable Pineda Miller Attending Clinician Edison JASSO, R. Attending Clinician Samm JASSO Attending Clinician Shantanu Richter MD Attending Clinician Hayden HERRERA Attending Clinician Unavailable Kyle Soto MD Attending Clinician Ally Jean MD Attending Clinician Amanuel JASSO Attending Clinician Blaine Akbar MD Attending Clinician Carter Weinberg Attending Clinician Unavailable Mark Hanks MD Attending Clinician Tahira JASSO Attending Clinician Brady Fang MD Attending Clinician Ulices WILLIAM Attending Clinician Unavailable FRED HERNANDEZ Attending Clinician Unavailable Aleks Lockhart Attending Clinician BLAKE VALERO Attending Clinician Unavailable Arnulfo Giron Attending Clinician KEYON Admitting Clinician Unavailable VIKA CUNHA Admitting Clinician Unavailable Payers Payer Name Policy Type Policy Effective Date Expiration Date Sour ce Number [facility] [id number] 2019 [place] CHOICE 00:00:00 [employer]azidism EXCHANGEFORMERLY [facility] EXCHANGE MARKETPLACExxxxxx [id number] 2018-Pr esentExchange Problems Condition Condition Condition Status Onset Resolution Last Treating Co mments Source Name Details Category Date Date Treatment Clinician Date NEW GI Diagnosis Active 2020-06-29 Mem oria VISIT- ABD 06-16 10:29:00 l PAIN NEW GI 00:00: [place] VISIT- ABD 00 PAIN Active 06/16/2020 [facility] K21.9 - Diagnosis Active 2020 Me moria GASTRO-ESO 8-07 10:40:00 l PHAGEAL K21.9 - 00:01: Shekhar alvarez REFLUX GASTRO-ESO 00 DISEA PHAGEAL REFLUX DISEA Active 05/14/2020 ILYA Landa Bradycardi Bradycardi Disease Active [place] a 5-07 Methodi 00:00: st 00 SOB SOB Disease Active Lazar (shortness (shortness 5-07 Me thodi of breath) of breath) 00:00: st 00 Anaphylact Anaphylact Disease Active [facility]14 [facility] - reaction reaction 00:00: Medica l 00 Center UNK Diagnosis Active 2019-04-08 Mem oria 702 16:31:00 l UNK 14:00: [place] 00 Active 04/08/2019 [facility] RIGHT Diagnosis Active 2020-03-23 Mem oria OVARIAN 04-08 10:14:00 l CYST RIGHT 14:00: [place]ell N83.201 OVARIAN 00 CYST N83.201 Active 04/08/2019 [facility] Cardiac Cardiac Disease Active [facility] murm[facility] murmur 6-26 [facility] - 00:[facility]: Medical 00 Center J32.9 - Diagnosis Active 2017-04-12 Ga moria "CHRONIC 04-09 17:27:00 l SINUSITIS, J32.9 - 00:01: Her deshpande UNSPECIFIE "CHRONIC 00 D" SINUSITIS, UNSPECIFIE D" Active 7 LELAD Cordell Gastritis Gastritis Problem Active [facility] ans Chronic Chronic Problem Active [facility] sinusitis sinusitis [facility] [place] [facility] ans GERD GERD Problem Active Univers (gastroeso (gastroeso it y of phageal phageal [place] reflux reflux Physici disease) disease) ans Abdominal Abdominal Problem Active Uni vers pain pain [facility] [place] [facility] ans Asthma Asthma Problem Active [facility] ans Eosinophil Eosinophil Problem Active U nivers ic asthma ic asthma [facility] ans Nausea Nausea Problem Active [facility] ans Malnutriti Malnutriti Problem Active U nivers on on [facility] ans Malabsorpt Malabsorpt Problem Active U nivers ion ion [facility] ans Vitamin D Vitamin D Problem Active Uni vers deficiency deficiency [facility] ans Screening Screening Problem Active Uni vers for viral for viral ity of disease disease [place] [facility] ans Asthma Problem Resolve 2020-07-01 Mitch jailyn (disorder) d 23:04:46 l Asthma [place] (disorder) Resolved Problem 07/01/2020 [facility] Allergies, Adverse Reactions, Alerts Allergy Allergy Status Severity Reaction(s) Onset Inactive Treating Comm ents Source Name Type Date Date Clinician Flexon Rashaadensi Active Unknown Nixon ty to Reaction 7-08 Methodi adverse 00:00: st reaction 00 s to drug Iodine Propensi Active Anaphylaxis Yosis ston ty to 03-02 Methodi adverse 00:00: st reaction 00 s to drug Orphenad Propensi Active Other (See [place] Hcl ty to Comments) 5- Metho di adverse 00:00: st reaction 00 s to drug Dupiluma Propensi Active Unknown [place] ty to Reaction 24 Methodi adverse 00:00: st reaction 00 s to drug Iodine Propensi Active Anaphylaxis Possible [place] ty to 07-07 allergy Methodi Iodide adverse 00:00: with st Containi reaction 00 shellfish ng s to per Products drug patient Pollen Propensi Active Swelling [place] Extracts ty to 07-07 Methodi adverse 00:00: st reaction 00 s to drug Avocado Propensi Active Swelling No issues [place] ty to 07-01 with Methodi adverse 00:00: latex per st reaction 00 patient s to drug Shellfis Propensi Active Anaphylaxis, Lazar h ty to Swelling 07-01 Methodi Derived adverse 00:00: st reaction 00 s to drug Omalizum Drug Active Other (See 2019 Coughing, C [facility] ab Allergy Comments) 06-20 rash [facility] - 00:[facility]: Medical 00 Center Omalizum Propensi Active Anaphylaxis 2018- Coughing , Lazar ab ty to 06-20 rash Methodi adverse 00:00: st reaction 00 s to drug Mold Propensi Active [facility] ty to 04-02 [facility] - adverse 00:00: Medical reaction 00 Center s Mold Propensi Active Unknown Lazar ty to Reaction 04-02 Methodi adverse 00:00: st reaction 00 s to drug Avocado Drug Active Hives, Swelling [facility] (Laurus Allergy Itching, - of the [facility] - [place]) Swelling 00:00: tongue. Medica l 00 Center Fish Propensi Active Hives, Swelling [facility] Containi ty to Swelling, - of [facility] - ng adverse Rash 00:00: tongue. Medical Products reaction 00 Center s [place] Propensi Active Itching, Tongue [facility] ty to Swelling - swelling. [facility] - adverse 00:00: Medical reaction 00 Center s Nsaids Drug Active Hives, Swelling [facility] (Non-Reza Allergy Swelling - of the [facility] - roidal 00:00: eyes. Medical Anti-Inf 00 Center lammator y Drug) Penicill Drug Active When she [facility] ins Allergy - was [facility] - 00:00: younger. Medical 00 Center Shellfis Drug Active Anaphylaxis 2017- [facility] Allergy - [facility] - Containi 00:00: Medical ng 00 Center Products Avocado Propensi Active Hives, 2017-0 Swelling [place] (Laurus ty to Itching, 4-26 of the Methodi [place]) adverse Swelling 00:00: tongue. st reaction 00 s to drug Fish Propensi Active Hives, Rash, 2017-0 Swelling Lazar Containi ty to Swelling 01-31 of Method i ng adverse 00:00: tongue. st Products reaction 00 s to drug [place] Propensi Active Swelling, Tongue [place] ty to Itching 01-31 swelling. Method i adverse 00:00: st reaction 00 s to drug Nsaids Propensi Active Hives, Wheezing, [place] (Non-Reza ty to Shortness Of 01-31 difficult Methodi roidal adverse Breath, 00:00: y st Anti-Inf reaction Swelling 00 breathing lammator s to Swelling y Drug) drug of the eyes. Other Propensi Active Hives, To muscle [place] ty to Swelling, 01-31 relaxersM Meth tommy adverse Itching 00:00: uscle st reaction 00 relaxer s (dorflex -- sold only in [place]). Penicill Propensi Active Hives Unknown [place] ins ty to 01-31 reaction Methodi adverse 00:00: When she st reaction 00 was s to younger. drug Shellfis Propensi Active Anaphylaxis [place] ty to 01-31 Methodi Containi adverse 00:00: st ng reaction 00 Products s to drug penicill penicill Active Memori a in in l [place] Flexon Flexon Active Memoria l [place] Food Food Active Memoria Seafood Seafood l [place] Food Food Active Memoria Shellfis Shellfis l h h [place] Other Other Active Memoria Food Food l Allergy< Allergy< Shekhar n sup>1, sup>1, 2</sup> 2</sup> iodine iodine Active Memoria l [place] NSAIDs NSAIDs Active Memoria l [place] Family History Family Member Diagnosis Comments Start Date Stop Date Source Natural father Heart disease [facility] Natural father Heart attack Lazar Yazidism Natural father Other [facility] Natural father Stroke [facility] Natural mother No Known Problem [facility] Natural mother Migraines [facility] Natural mother Other [facility] thodist Social History Social Habit Start Date Stop Date Quantity Comments Source Sex Assigned At [facility] Tobacco use and 2020-04-14 2020-04-14 Never used [facility] ethodist exposure 00:00:00 00:00:00 Alcohol intake 2020-04-14 2020-04-14 Ex-drinker [facility] thodist 00:00:00 00:00:00 (finding) Alcohol Comment 2019-07-01 2019-07-01 very rare Nagi Forman ethodist 00:00:00 00:00:00 Social History 2017-04-13 2017-04-13 [facility] Eliza ermann 04:59:00 04:59:00 Smoking Status Start Date Stop Date Source Never smoker Lazar Methodis t Medications Ordered Filled Start Stop Current Ordering Indication Dosage Frequency Signature Comments Components Source Medication Medication Date Date Medication? Clinician (SIG) Name Name linaclotide 2020-0 Yes 145 Memori a 0.145 MG 9-22 microgram l Oral 17:29: = 1 cap, Cordell Capsule 00 PO, Daily, [Linzess] 30 minutes prior to the first meal of the day, # 90 cap, 1 Refill(s), Pharmacy: [facility] #[id number], 167.64, cm, 06/29/20 10:27:00 CDT, Height, 68.182, kg, 06/29/20 10:27:00 CDT, Weight linaclotide 2020-0 Yes 145 Memori a 0.145 MG 9-22 microgram l Oral 17:29: = 1 cap, Cordell Capsule 00 PO, Daily, [Linzess] 30 minutes prior to the first meal of the day, # 90 cap, 1 Refill(s), Pharmacy: [facility] #[id number], 167.64, cm, 06/29/20 10:27:00 CDT, Height, 68.182, kg, 06/29/20 10:27:00 CDT, Weight Vitamin B12 2020-0 Yes 1,000 Memor ia 1000 mcg 9-22 microgram l oral tablet 17:28: = 1 tab, He rmann 00 PO, Daily, # 90 tab, 3 Refill(s), Pharmacy: [facility] #[id number], 167.64, cm, 06/29/20 10:27:00 CDT, Height, 68.182, kg, 06/29/20 10:27:00 CDT, Weight Vitamin B12 2020-0 Yes 1,000 Memor ia 1000 mcg 9-22 microgram l oral tablet 17:28: = 1 tab, He rmann 00 PO, Daily, # 90 tab, 3 Refill(s), Pharmacy: [facility] #[id number], 167.64, cm, 06/29/20 10:27:00 CDT, Height, 68.182, kg, 06/29/20 10:27:00 CDT, Weight pantoprazol 2020-0 Yes 40 mg = 1 M emoria e 40 MG 9-22 tab, PO, l Enteric 17:27: BID, # 180 Herm melanie Coated 00 tab, 1 Tablet Refill(s), [Protonix] Pharmacy: [facility] #[id number], 167.64, cm, 06/29/20 10:27:00 CDT, Height, 68.182, kg, 06/29/20 10:27:00 CDT, Weight pantoprazol 2020-0 Yes 40 mg = 1 M emoria e 40 MG 9-22 tab, PO, l Enteric 17:27: BID, # 180 Herm melanie Coated 00 tab, 1 Tablet Refill(s), [Protonix] Pharmacy: [facility] #[id number], 167.64, cm, 06/29/20 10:27:00 CDT, Height, 68.182, kg, 06/29/20 10:27:00 CDT, Weight cromolyn 20 2020-0 Yes 200 mg = Me moria mg/mL oral 9-22 10 mL, PO, l solution 17:25: QID, 30 Shekhar n 00 minutes before meals and at bedtime, # 1200 mL, 0 Refill(s), Pharmacy: [facility] #[id number], 167.64, cm, 06/29/20 10:27:00 CDT, Height, 68.182, kg, 06/29/20 10:27:00 CDT, Weight cromolyn 20 2020-0 Yes 200 mg = Me moria mg/mL oral 9-22 10 mL, PO, l solution 17:25: QID, 30 Shekhar n 00 minutes before meals and at bedtime, # 1200 mL, 0 Refill(s), Pharmacy: [facility] #[id number], 167.64, cm, 06/29/20 10:27:00 CDT, Height, 68.182, kg, 06/29/20 10:27:00 CDT, Weight Hydroxychlo 2020-0 Yes 200 mg = 1 Memoria roquine 9-22 tab, PO, l Sulfate 200 17:23: Daily, Candace Stover rmann MG Oral 00 30 tab, 0 Tablet Refill(s), Pharmacy: [facility] #[id number], 167.64, cm, 06/29/20 10:27:00 CDT, Height, 68.182, kg, 06/29/20 10:27:00 CDT, Weight Hydroxychlo 2020-0 Yes 200 mg = 1 Memoria roquine 9-22 tab, PO, l Sulfate 200 17:23: Daily, Candace Stover rmann MG Oral 00 30 tab, 0 Tablet Refill(s), [id number], 167.64, cm, 06/29/20 10:27:00 CDT, Height, 68.182, kg, 06/29/20 10:27:00 CDT, Weight omeprazole 2020-0 Yes 40 mg = 1 Me moria 40 mg oral 9-22 cap, PO, l delayed 15:39: Daily, # Shekhar n release 00 30 cap, 0 capsule Refill(s) fexofenadin 2020-0 Yes 180 mg = 1 Memoria e 180 mg 9-22 tab, PO, l oral tablet 15:39: Daily, PRN [place] 00 Allergic reaction, # 10 tab, 0 Refill(s) montelukast 2020-0 Yes 10 mg = 1 M emoria 10 mg oral 9-22 tab, PO, l tablet 15:39: Bedtime, # Sandra nn 00 30 tab, 0 Refill(s) cyclobenzap 2020-0 Yes 5 mg = 1 Me moria rine 5 mg 9-22 tab, PO, l oral tablet 15:39: TID, # 30 H ermann 00 tab, 0 Refill(s) Tylenol 2020-0 Yes PO, 0 Memoria 9-22 Refill(s) l 15:39: [place] 00 Asmanex HFA 2020-0 Yes INHALATION Memoria 9-22 , BID, 0 l 15:39: Refill(s) [place] 00 Spiriva 2020-0 Yes INHALATION Mitch jailyn Respimat -22 , Daily, 0 l 15:39: Refill(s) [place] 00 Symbicort 2020-0 Yes 2 puff, Memor ia 160/4.5 - INHALER, l inhalation 15:39: BID, # 1 Her deshpande aerosol 00 ea, 3 with Refill(s) adapter fluticasone 2020-0 Yes INHALATION Memoria furoate - , Q24H, 0 l 15:39: Refill(s) [place] 00 Azelastine 2020-0 Yes 137 Memoria hydrochlori 9- microgram l de 0.137 15:39: =, [place] MG/ACTUAT 00 INHALER, Metered BID, PRN Dose Nasal Congestion May | 1-2 sprays, # 1 ea, 0 Refill(s) Albuterol 2020-0 Yes 3 ml, Memoria 0.833 MG/ML 06-29 INHALATION l / 15:39: , QID, # [place] Ipratropium 00 30 ea, 0 [place] Refill(s) 0.167 MG/ML Inhalant Solution omeprazole 2020-0 Yes 40 mg = 1 Me moria 40 mg oral - cap, PO, l delayed 15:39: Daily, # Shekhar n release 00 30 cap, 0 capsule Refill(s) fexofenadin 2020-0 Yes 180 mg = 1 Memoria e 180 mg -22 tab, PO, l oral tablet 15:39: Daily, PRN [place] 00 Allergic reaction, # 10 tab, 0 Refill(s) montelukast 2020-0 Yes 10 mg = 1 M emoria 10 mg oral 9-22 tab, PO, l tablet 15:39: Bedtime, # Sandra nn 00 30 tab, 0 Refill(s) cyclobenzap 2020-0 Yes 5 mg = 1 Me moria rine 5 mg 9-22 tab, PO, l oral tablet 15:39: TID, # 30 H ermann 00 tab, 0 Refill(s) Tylenol 2020-0 Yes PO, 0 Memoria -22 Refill(s) l 15:39: [place] 00 Asmanex HFA 2020-0 Yes INHALATION Memoria 9- , BID, 0 l 15:39: Refill(s) Cordell 00 Spiriva 2020-0 Yes INHALATION Mitch jailyn Respimat -22 , Daily, 0 l 15:39: Refill(s) [place] 00 Symbicort 2020-0 Yes 2 puff, Memor ia 160/4.5 9-22 INHALER, l inhalation 15:39: BID, # 1 Her deshpande aerosol 00 ea, 3 with Refill(s) adapter fluticasone 2020-0 Yes INHALATION Memoria furoate 9-22 , Q24H, 0 l 15:39: Refill(s) [place] 00 Azelastine 2020-0 Yes 137 Memoria hydrochlori 9-22 microgram l de 0.137 15:39: =, [place] MG/ACTUAT 00 INHALER, Metered BID, PRN Dose Nasal Congestion May | 1-2 sprays, # 1 ea, 0 Refill(s) Albuterol 2020-0 Yes 3 ml, Memoria 0.833 MG/ML 9-22 INHALATION l / 15:39: , QID, # [place] Ipratropium 00 30 ea, 0 [place] Refill(s) 0.167 MG/ML Inhalant Solution Vitamin D Vitamin D 2020-0 Yes JOSE Take 1 Univers (Ergocalcif (Ergocalcif -07 HERNANDEZ [employer]CE[employer] capsule ity of lala) 1.25 llaa) 1.25 00:00: two times [place] MG (60360 MG (10846 00 per week P hysici UT) Oral UT) Oral ans Capsule Capsule tiotropium 2020-0 Yes 2{puff} Inhale 2 Lazar bromide 7-08 puffs. Methodi (Spiriva 15:27: st Respimat) 04 1.25 mcg/actuati on mist cyclobenzap 2020-0 Yes 5mg Take 5 mg [place] rine 6-30 by mouth. Methodi (FLEXERIL) 00:00: st 5 mg tablet 00 budesonide- 2020-0 Yes 2{puff} Q.5D Inhale 2 Lazar formoterol 6-16 puffs 2 Method i (SYMBICORT) 08:15: (two) st 160-4.5 29 times a mcg/actuati day. on inhaler montelukast 2020-0 Yes 10mg QD Take 10 mg Lazar (SINGULAIR) 6-16 by mouth Meth tommy 10 mg 08:15: nightly. st tablet 29 albuterol 2020-0 Yes 2{puff} Q4H Inhale 2 [place] (PROAIR 6-16 puffs Methodi HFA) 90 08:15: every 4 st mcg/actuati 29 (four) on inhaler hours as needed for wheezing. tiotropium 2020-0 Yes 1{capsu QD Place [facility] 6-16 le} capsule Methodi 18 mcg per 08:15: into st inhalation 29 inhaler capsule and inhale once daily. azelastine 2020-0 Yes 1{spray Q.5D 1 spray [place] (ASTELIN) 6-16 } into each Metho di 137 mcg 08:15: nostril 2 st (0.1 %) 29 (two) nasal spray times a day. Use in each nostril as directed fluticasone 2020-0 Yes 2{spray QD 2 sprays Lazar propionate 6-16 } by Each Method i (FLONASE) 08:15: Nare route st 50 29 daily. mcg/actuati on nasal spray UNABLE TO 2020-0 Yes Med Name: Yossi lanza FIND 6-16 Pro Air Methodi 08:15: Respliclic st 29 k LEVOFLOXACI 2020-0 Yes 720mg QD Take 720 [place] N ORAL 5-07 mg by Methodi 11:03: mouth st 13 daily. cetirizine 2019-0 2020- No 10mg QD Take 10 mg Lazar (ZyrTEC) 10 5-07 05-07 by mouth Met hodi MG tablet 10:57: 00:[address] 18 :00 morning. albuterol 2020-0 2020- No 2.5mg Inhale 2.5 Lazra (ACCUNEB) 3-30 10-15 mg. Methodi 2.5 mg /3 00:00: 23:59 st mL (0.083 00 :00 %) nebulizer solution predniSONE 2020-0 2020- No Please [place] (DELTASONE) 01-01 take 40 mg M ethodi 10 mg 00:00: 23:[address] tablet 00 :00 prednisone for 5 days, followed by 30 mg on days 6 &7, 20 mg on days 8 & 9, 10 mg on days 10 & 11, and 5 mg on days 12 & 13. codeine-gua 2019-0 2020- No acute pain 10mL Q6H Take 10 mL Lazar ifenesin 01-01-03 by mouth Method i (GUAIFENESI 00:00: 23:[address] N AC) 00 :00 (six) 10-100 mg/5 hours as mL liquid needed for cough for up to 7 days .acute pain. oseltamivir 2019- No 75mg Q12H Take 1 Yossi ston (TAMIFLU) 01-01 capsule Method i 75 MG 00:00: 23:59 ([address] capsule 00 :00 total) by mouth every 12 (twelve) hours for 5 days. budesonide Yes U 2 ML VIA H oupool (PULMICORT) 12-22 NEB BID Metho di 0.5 mg/2 mL 00:00: st nebulizer 00 solution fexofenadin Yes TK 1 T PO [place] e (ARTURO) 12-22 BID Methodi 180 MG 00:00: st tablet 00 albuterol 2019- No Moderate 1.25mg Q6H Take 3 mL Lazar (ACCUNEB) 11-29 asthma, (1.25 mg Me thodi 1.25 mg/3 00:00: 23:59 unspecified total) by st mL 00 :00 whether nebulizati nebulizer complicated on every 6 solution , (six) unspecified hours as whether needed for persistent wheezing for up to 30 days. predniSONE 2019- No 60mg QD Take 3 [place] (DELTASONE) 11-29 tablets Meth tommy 20 mg 00:00: 23:59 ([address] tablet 00 :00 total) by mouth daily for 5 days. ondansetron 2018- No 8mg Q8H Take 1 Yossi ston ODT (ZOFRAN -06 08- tablet (8 Me thodi ODT) 8 MG 00:00: 23:59 mg total) st disintegrat 00 :00 by mouth ing tablet every 8 (eight) hours as needed for nausea or vomiting for up to 30 days. clindamycin 2018- No 300mg [id number] Take 1 Nagi (CLEOCIN 07-07 [id number] capsule M ethodi HCL) 300 MG 00:00: 23:59 3D ([address] capsule 00 :00 total) by mouth 3 (three) times a day for 7 days. acetaminoph 2018- No acute pain 1{tbl} Q4H Take 1 Nagi en-codeine 07-07 tablet by Met hodi (TYLENOL 00:00: 23:[address] WITH 00 :00 every 4 CODEINE #3) (four) 300-30 mg hours as per tablet needed for moderate pain for up to 7 days .Acute Pain. budesonide- Yes 2{puff} Q.5D Inhale [address] formoterol 9-13 puffs by [facility] - (SYMBICORT) 10:14: mouth via M edical 160-4.5 11 inhaler 2 Center mcg/actuati (two) on inhaler times daily. EPINEPHrine Yes .3mg Inject 0.[address] (EPIPEN) 9-13 mLs (0.3 [facility] - 0.3 mg/0.3 00:00: mg total) Me dical mL AtIn 00 intramuscu Center larly as needed (Severe allergic reaction, respirator y distress or swelling of lips/tongu e/throat). epINEPHrine Yes .3mg Inject 0.3 Lazar (EpiPen) 9-13 mg into Methodi 0.3 mg/0.3 00:00: the st mL 00 shoulder, auto-inject thigh, or or buttocks. ASMANEX HFA Yes [place] 200 8-06 Methodi mcg/actuati 00:00: st on HFA 00 aerosol inhaler ProAir HFA Yes 1 - 2 Memori a 7-03 puffs, PO, l 11:36: Q4H, PRN [place] 00 Wheezing / cough / shortness of breath, # 1 ea, 0 Refill(s) ProAir HFA Yes 1 - 2 Memori a 7-03 puffs, PO, l 11:36: Q4H, PRN [place] 00 Wheezing / cough / shortness of breath, # 1 ea, 0 Refill(s) Fluticasone 2018- Yes See Memori a propionate 7-03 Instructio l 0.093 11:29: ns, 50mcg Cordell MG/ACTUAT 00 BID, 0 Metered Refill(s) Dose Nasal May Breo Yes 1 puff, Memoria Ellipta 200 7-03 INHALATION l mcg-25 11:29: , Daily, 0 Sandra nn mcg/inh 00 Refill(s) inhalation powder cetirizine 2018- Yes 10 mg = 1 Me moria 10 mg oral 7-03 tab, PO, l tablet 11:29: Daily, PRN Sandra nn 00 Allergic reaction, # 10 tab, 0 Refill(s) 120 ACTUAT Yes See Memoria mometasone 7-03 Instructio l furoate 0.2 11:29: ns, Shekhar n MG/ACTUAT 00 INHALATION Metered 2 puffs Dose BID, 0 Inhaler Refill(s) [Asmanex] montelukast Yes 10 mg = 1 M emoria 10 mg oral 7-03 tab, PO, l tablet 11:29: Bedtime, # Sandra nn 00 30 tab, 0 Refill(s) Fluticasone Yes See Memori a propionate 7-03 Instructio l 0.093 11:29: ns, 50mcg Cordell MG/ACTUAT 00 BID, 0 Metered Refill(s) Dose Nasal May Breo Yes 1 puff, Memoria Ellipta 200 7-03 INHALATION l mcg-25 11:29: , Daily, 0 Sandra nn mcg/inh 00 Refill(s) inhalation powder cetirizine Yes 10 mg = 1 Me moria 10 mg oral 7-03 tab, PO, l tablet 11:29: Daily, PRN Sandra nn 00 Allergic reaction, # 10 tab, 0 Refill(s) 120 ACTUAT Yes See Memoria mometasone 7-03 Instructio l furoate 0.2 11:29: ns, Shekhar n MG/ACTUAT 00 INHALATION Metered 2 puffs Dose BID, 0 Inhaler Refill(s) [Asmanex] montelukast Yes 10 mg = 1 M emoria 10 mg oral 7-03 tab, PO, l tablet 11:29: Bedtime, # Sandra nn 00 30 tab, 0 Refill(s) Acetaminoph No Notes: Max Memoria en 10 MG/ML 7-03 acetaminop l Injectable 05:00: hen 4000 Her deshpande Solution 00 mg/day (4 gm/day). (Same as: Tylenol Extra Strength) Acetaminoph No Notes: Max Memoria en 10 MG/ML 7-03 acetaminop l Injectable 05:00: hen 4000 Her deshpande Solution 00 mg/day (4 gm/day). (Same as: Tylenol Extra Strength) Saline No Notes: Memoria Flush 0.9% 04-09 (Same as: l 02:00: BD Cordell 00 Posiflush) Saline No Notes: Memoria Flush 0.9% 04-09 (Same as: l 02:00: BD Posiflush) midazolam No Route: IV, Me moria (ANES) 04-09 Drug form: l 01:01: SOLN, 00 ONCE, Stop date: 04/08/19 20:01:00 CDT rocuronium No Route: IV, M emoria (ANES) 04-09 Drug form: l 01:01: INJ, ONCE, Stop date: 04/08/19 20:01:00 CDT ondansetron No Route: IV, Memoria (ANES) 04-09 Drug form: l 01:01: INJ, ONCE, Stop date: 04/08/19 20:01:00 CDT fentaNYL No Route: IV, Mem oria (ANES) 04-09 Drug form: l 01:01: INJ, ONCE, Stop date: 04/08/19 20:01:00 CDT lidocaine 2018- No Route: IV, Me moria (ANES) 04-09 Drug form: l 01:01: INJ, ONCE, Stop date: 04/08/19 20:01:00 CDT propofol 2018- No Route: IV, Mem oria (ANES) 04-09 Drug form: l 01:01: INJ, ONCE, Stop date: 04/08/19 20:01:00 CDT dexamethaso No Route: IV, Memoria ne (ANES) 04-09 Drug form: l 01:01: INJ, ONCE, Stop date: 04/08/19 20:01:00 CDT neostigmine No Route: IV, Memoria (ANES) 04-09 Drug form: l 01:01: INJ, ONCE, Stop date: 04/08/19 20:01:00 CDT glycopyrrol No Route: IV, Memoria ate (ANES) 04-09 Drug form: l 01:01: INJ, ONCE, Stop date: 04/08/19 20:01:00 CDT midazolam 2019-0 No Route: IV, Me moria (ANES) 04-09 Drug form: l 01:01: SOLN, [place] 00 ONCE, Stop date: 04/08/19 20:01:00 CDT rocuronium 2019-0 No Route: IV, Dickson coronadoria (ANES) 04-09 Drug form: l 01:01: INJ, ONCE, Stop date: 04/08/19 20:01:00 CDT ondansetron 2019-0 No Route: IV, Memoria (ANES) 04-09 Drug form: l 01:01: INJ, ONCE, Stop date: 04/08/19 20:01:00 CDT fentaNYL 2019-0 No Route: IV, Mem oria (ANES) 04-09 Drug form: l 01:01: INJ, ONCE, Stop date: 04/08/19 20:01:00 CDT lidocaine 2019-0 No Route: IV, Me moria (ANES) 04-09 Drug form: l 01:01: INJ, ONCE, Stop date: 04/08/19 20:01:00 CDT propofol 2019-0 No Route: IV, Mem oria (ANES) 04-09 Drug form: l 01:01: INJ, ONCE, Stop date: 04/08/19 20:01:00 CDT dexamethaso 2018-0 No Route: IV, Memoria ne (ANES) 04-09 Drug form: l 01:01: INJ, ONCE, Stop date: 04/08/19 20:01:00 CDT neostigmine 2018-0 No Route: IV, Memoria (ANES) 04-09 Drug form: l 01:01: INJ, ONCE, Stop date: 04/08/19 20:01:00 CDT glycopyrrol 2019-0 No Route: IV, Memoria ate (ANES) 04-09 Drug form: l 01:01: INJ, ONCE, Stop date: 04/08/19 20:01:00 CDT Saline 2019-0 No Notes: Memoria Flush 0.9% - (Same as: l 00:53: BD [place] 00 Posiflush) Naloxone No Notes: Memoria - Same as l 00:53: Narcan [place] 00 Hydromorpho No Notes: Mitch jailyn ne 04-09 (Same as: l 00:53: Dilaudid) [place] conc = 0.5 mg/ml Hydromorph one [employer]AK[employer] Dose: ;Delay: ;Basal: Oxycodone No Notes: Memori a Hydrochlori 04-09 (Same as: l de 5 MG 00:53: Roxicodone Herm melanie Oral Tablet 00 ) Zofran No Notes: Memoria 04-09 (Same as: l 00:53: Zofran) Cordell MEDICATION WASTE Product Size: 4 mg Product Wasted: ___ mg Phenergan No Notes: Memori a 04-09 (Same as: l 00:53: Phenergan) [place]ell Dilaudid No Notes: Memoria 04-09 Same as l 00:53: Dilaudid Cordell 00 Ativan No Notes: Memoria 04-09 (Same as: l 00:53: Ativan) Axtell 00 Calcium No 1,000 mL, Memor ia Chloride 04-09 Rate: 125 l 0.002 00:53: ml/hr, Cordell MEQ/ML / 00 Infuse Glucose 50 over: 8 MG/ML / hr, Route: Potassium IV, Dosing Chloride Weight 0.004 60.005 kg, MEQ/ML / Total Sodium Volume: Chloride 1,000, 0.147 Start MEQ/ML date: Injectable 04/08/19 Solution 19:53:00 CDT, Duration: 30 day, Stop date: 05/08/19 19:52:00 CDT, 1.67, m2, 0 Saline No Notes: Memoria Flush 0.9% - (Same as: l 00:53: BD Cordell 00 Posiflush) Naloxone No Notes: Memoria - Same as l 00:53: Narcan [place] Hydromorpho No Notes: Mitch jailyn ne 04-09 (Same as: l 00:53: Dilaudid) conc = 0.5 mg/ml Hydromorph one SUPERVISOR ORDER TAKERS Dose: ;Delay: ;Basal: Oxycodone No Notes: Memori a Hydrochlori 04-09 (Same as: l de 5 MG 00:53: Roxicodone Herm melanie Oral Tablet 00 ) Zofran No Notes: Memoria 04-09 (Same as: l 00:53: Zofran) MEDICATION WASTE Product Size: 4 mg Product Wasted: ___ mg Phenergan No Notes: Memori a 04-09 (Same as: l 00:53: Phenergan) Dilaudid No Notes: Memoria 04-09 Same as l 00:53: Dilaudid Ativan No Notes: Memoria 04-09 (Same as: l 00:53: Ativan) Calcium No 1,000 mL, Memor ia Chloride 04-09 Rate: 125 l 0.002 00:53: ml/hr, MEQ/ML / 00 Infuse Glucose 50 over: 8 MG/ML / hr, Route: Potassium IV, Dosing Chloride Weight 0.004 60.005 kg, MEQ/ML / Total Sodium Volume: Chloride 1,000, 0.147 Start MEQ/ML date: Injectable 04/08/19 Solution 19:53:00 CDT, Duration: 30 day, Stop date: 05/08/19 19:52:00 CDT, 1.67, m2, 0 ceFAZolin No Route: IV, Me moria (ANES) 04-09 Drug form: l 00:42: INJ, ONCE, Stop date: 04/08/19 19:42:00 CDT ceFAZolin No Route: IV, Me moria (ANES) 04-09 Drug form: l 00:42: INJ, ONCE, Stop date: 04/08/19 19:42:00 CDT Ondansetron No Notes: Mitch jailyn 04-09 (Same as: l 00:26: Zofran) MEDICATION WASTE Product Size: 4 mg Product Wasted: ___ mg Naloxone No Notes: Memoria 7-03 Same as l 00:26: Narcan [place] 00 Hydromorpho No Notes: Mitch jailyn ne 7-03 Same as l 00:26: Dilaudid [place] Flumazenil No Notes: Memor ia 7-03 (Same as: l 00:26: Romazicon) Cordell 00 Fentanyl No Notes: Memoria 7-03 (Same as: l 00:26: Sublimaze) [place] Preservat marie free. Labetalol No Notes: Memori a 7-03 (Same as: l 00:26: Normodyne, [place] 00 Trandate) Push over 2 minutes Give bolus over 2-3 minutes. Hydralazine No Notes: Mitch jailyn 7-03 (Same as: l 00:26: Apresoline [place] ) Push over 5 minutes Ondansetron No Notes: Mitch jailyn 7-03 (Same as: l 00:26: Zofran) Cordell 00 MEDICATION WASTE Product Size: 4 mg Product Wasted: ___ mg Naloxone No Notes: Memoria 7-03 Same as l 00:26: Narcan [place] Hydromorpho No Notes: Mitch jailyn ne 7-03 Same as l 00:26: Dilaudid [place] 00 Flumazenil No Notes: Memor ia 7-03 (Same as: l 00:26: Romazicon) Cordell 00 Fentanyl No Notes: Memoria 7-03 (Same as: l 00:26: Sublimaze) Cordell Preservat marie free. Labetalol No Notes: Memori a 7-03 (Same as: l 00:26: Normodyne, Cordell 00 Trandate) Push over 2 minutes Give bolus over 2-3 minutes. Hydralazine No Notes: Mitch jailyn 7-03 (Same as: l 00:26: Apresoline Cordell 00 ) Push over 5 minutes Lactated No Route: IV, Mem oria Ringers 7- Total l Injection 23:50: Volume: Sandra nn IV (ANES) 00 1,000, 1000 mL Start date: 04/08/19 18:50:00 CDT, Stop date: 04/08/19 19:50:00 CDT Lactated No Route: IV, Mem oria Ringers 04-08 Total l Injection 23:50: Volume: Sandra nn IV (ANES) 00 1,000, 1000 mL Start date: 04/08/19 18:50:00 CDT, Stop date: 04/08/19 19:50:00 CDT montelukast Yes 10mg QD Take [address] [facility] [address] (SINGULAIR) 4-26 by mouth [facility] - 10 mg 14:17: nightly 20 Medica l tablet 27 mg daily Center prn. albuterol Yes Q.25D Inhale by [facility] sulfate 4- mouth via [facility] - (PROAIR 14:13: inhaler 4 Medic al RESPICLICK 12 (four) Center INHL) times daily And 6 times a day prn. cetirizine Yes 10mg QD Take [address] (ZYRTEC) 10 4-26 by mouth Luke s - MG tablet 14:10: daily. Medica l 54 Center fluticasone Yes SPRAY [facility] (FLONASE) 4-26 TWICE IEN [facility] - 50 00:00: QD Medical mcg/actuati 00 Center on nasal spray ASMANEX HFA Yes INHALE [address] 200 3-29 PUFFS PO [facility] - mcg/actuati 00:00: BID Medica l on HFAA HFA 00 Center inhaler Mometasone Mometasone Yes KYLE QD USE 2 Univers Furoate 50 Furoate 50 7-03 MICHAEL Smith SPRAYS IN ity of MCG/ACT MCG/ACT 00:00: EACH [place] Nasal Nasal 00 NOSTRIL Physici Suspension Suspension ONCE DAILY ans Qvar 80 Qvar 80 Yes Univers MCG/ACT MCG/ACT ity of AERS AERS [place] [facility] predniSONE predniSONE Yes Uni vers SOLN SOLN ity of [place] [facility] Levaquin Levaquin Yes Univers 750 MG TABS 750 MG TABS i ty of [place] [facility] Mucinex Mucinex Yes Univers Allergy Allergy ity of TABS TABS [place] [facility] Qnasl AERS Qnasl AERS Yes Uni vers ity of [place] [facility] Symbicort Symbicort Yes Unive rs AERO AERO ity of [place] Physici ans Vital Signs Vital Name Observation Time Observation Value Comments Source Systolic (mm Hg) 2020-06-29 [facility] He rmann 15:27:00 Diastolic (mm Hg) 2020-06-29 [facility] H ermann 15:27:00 Heart Rate 2020-06-29 [facility] Shekhar n 15:27:00 Height 2020-06-[address] [facility] 15:27:00 Weight 2020-06-[address] [facility] 15:27:00 BMI Calculated 2020-06-[address] [facility] melanie 15:27:00 Systolic blood 2020-06-08 121 mm[Hg] Location: MILES; [facility] 15:01:00 Position: [place] [facility] S[facility] Diastolic blood 2020-06-08 85 mm[Hg[facility] Position: [place] [facility] Body height 2020-06-08 66 [in_us] University 15:01:00 [place] [facility] Weight 2020-06-08 147 [lb_av] University 15:01:00 [place] [facility] Body mass index 2020-06-08 23.73 kg/m2 University o f (BMI) [Ratio] 15:01:00 [place] [facility] ns Body temperature 2020-06-08 97 [degF] University 15:01:00 [place] [facility] Heart Rate 2020-06-08 51 /min University 15:01:00 [place] [facility] Systolic blood 2020-05-11 128 mm[Hg] [facility] 13:05:[facility] Position: [place] [facility] Diastolic blood 2020-05-11 87 mm[Hg] [facility] 13:05:[facility] Position: [place] [facility] Body height 2020-05-11 66 [in_us] University of 13:05:00 [place] [facility] Weight 2020-05-11 150 [lb_av] [facility] of 13:05:00 [place] [facility] Body mass index 2020-05-11 24.21 kg/m2 University o f (BMI) [Ratio] 13:05:00 [place] [facility] Body temperature 2020-05-11 98.6 [degF] University 13:05:00 [place] [facility] Heart Rate 2020-05-11 71 /min University 13:05:00 [place] [facility] Systolic blood 2020-04-14 115 mm[Hg] [facility] pressure 18:42:00 [facility] Diastolic blood 2020-04-14 75 mm[Hg] [facility] pressure 18:42:00 [facility] Heart rate 2020-04-14 58 /min Nixon 18:42:00 [facility]ism Respiratory rate 2020-04-14 18 /min Nixon 18:42:00 [facility] Oxygen saturation 2020-04-14 100 /min [facility] in Arterial blood 18:42:00 Y[facility]ism by Pulse oximetry Body temperature 2020-04-14 36.83 Digna Nixon 14:34:00 [facility]azidism Body height 2020-04-14 167.6 cm [facility] 14:34:00 [facility]ism Body weight 2020-04-14 65.772 kg Nixon 14:34:00 [facility]ism BMI 2020-04-14 23.40 kg/m2 [facility] 14:34:00 Y[facility]ism Respitory Rate 2019-04-09 [facility] 12:30:00 Systolic (mm Hg) 2019-04-09 [facility] He rmann 12:30:00 Diastolic (mm Hg) 2019-04-[address] [facility] ermann 12:30:00 Temperature Oral 2019-04-09 98.1 F [facility] rmann (F) 12:30:00 Heart Rate 2019-04-09 [facility] Shekhar n 12:30:00 Heart Rate 2019-04-09 [facility] Shekhar n 07:00:00 Respitory Rate 2019-04-09 [facility] melanie 07:00:00 Systolic (mm Hg) 2019-04-09 [facility] rmann 07:00:00 Diastolic (mm Hg) 2019-04-09 [facility] ermann 07:00:00 Temperature Oral 2019-04-09 98 F [facility] rmann (F) 07:00:00 Systolic (mm Hg) 2019-04-09 [facility] rmann 06:00:00 Diastolic (mm Hg) 2019-04-09 [facility] ermann 06:00:00 Respitory Rate 2019-04-09 [facility] melanie 06:00:00 Heart Rate 2019-04-09 [facility] Shekhar n 06:00:00 Temperature Oral 2019-04-09 98.4 F [facility] rmann (F) 03:00:00 Weight 2019-04-08 [facility] Shekhar n 23:01:00 Weight 2019-04-08 [facility] Shekhar n 22:50:00 Height 2019-04-08 165.1 cm [facility] Shekhar n 22:50:00 BMI Calculated 2019-04-08 [facility] melanie 22:50:00 Procedures Procedure Date / Time Performing Clinician Source Performed . [facility] - 2020-05-26 00:00:00 [facility] COVID-19/SARS-Cov-2 Physicians [Q] QUESTASSURED 25-[place] 2020-05-11 00:00:00 Unive [facility] VIT D, (D2,D3), LC/MS/MS Physici ans [QL] CBC (INCLUDES 2020-05-11 00:00:00 [facility] DIFF/PLT) Physicians [QL] CMP W/EGFR 2020-05-11 00:00:00 [facility] Physicians [QL] FOLATE, SERUM 2020-05-11 00:00:00 [facility] Physicians [QL] HEMOGLOBIN A1c 2020-05-11 00:00:00 [facility] Physicians [QL] IRON, TOTAL 2020-05-11 00:00:00 [facility] Physicians [QL] LIPID PANEL 2020-05-11 00:00:00 [facility] Physicians [QL] PTH, INTACT (WITHOUT 2020-05-11 00:00[facility] [QL] TSH, 3RD GENERATION 2020-05-11 00:00[facility]00 [facility] W/REFLEX TO FT4 Physicians [QL] VITAMIN A (RETINOL) 2020-05-11 00:00[facility]00 [facility]] VITAMIN B1, WHOLE 2020-05-11 00:00[facility]00 [facility] BLO[facility] [QL] VITAMIN B12 2020-05-11 00:00:00 [facility] Physicians [QL] VITAMIN E 2020-05-11 00:00:00 [facility] (TOCOPHEROL) Physicians [Q] TRYPTOPHAN 2020-05-11 00:00:00 [facility] Physicians [QL] COPPER 2020-05-11 00:00:00 [facility] Physicians [QL] MAGNESIUM 2020-05-11 00:00:00 [facility] Physicians [QL] SELENIUM 2020-05-11 00:00:00 [facility] Physicians [QL] ZINC, RBC 2020-05-11 00:00:00 [facility] Physicians Gastric Emptying Study 2020-05-11 00:00:00 [facility] Physicians PELVIC TRANSABDOMINAL 2020-04-14 17:32:05 Yossi Hogan US PELVIC TRANSVAGINAL 2020-04-14 17:31:35 Matthias Hogan on Yazidism Vini Valladares CT RENAL STONE PROTOCOL 2020-04-14 15:54:58 Sejal Hogan URINE CULTURE 2020-04-14 15:18:00 Nagi Hogan Meth nina Valladares HC COMPLETE BLD COUNT 2020-04-14 15:10:00 Inge Hogan W/AUTO DIFF Vini Valladares COMPREHENSIVE METABOLIC 2020-04-14 15:10:00 Sejal Hogan PANEL Vini Valladares ESTIMATED GFR 2020-04-14 15:10:00 Nagi Hogan RRabia URINALYSIS 2020-04-14 15:05:00 Nagi Hogan RRabia HCG QUALITATIVE, URINE 2020-04-14 15:05:00 Matthias Hogan on Yazidism SCREEN Vini Valladares CV CARDIAC EVENT MONITOR 2020-03-26 00:00:00 Provider, Louann Johnston TTE COMPLETE, W CONTRAST, 2020-02-20 15:34:56 Ann Richter W DOPPLER ([id number]) Shantanu B NATRIURETIC PEPTIDE 2020-02-20 00:00:00 Ann Richter LIPID PANEL 2020-02-20 00:00:00 Ann Richter INFLUENZA ANTIGEN 2020-01-02 21:49:00 Joseph Soto Ga arley Londono RESPIRATORY PATHOGEN 2020-01-02 21:48:00 Simon Fang PANEL XR CHEST 2 VW 2020-01-02 21:45:00 Simon Fang COMPREHENSIVE METABOLIC 2020-01-02 21:36:00 Simon Fang PANEL CBC WITH PLATELET AND 2020-01-02 21:36:00 Simon Fang DIFFERENTIAL B NATRIURETIC PEPTIDE 2020-01-02 21:36:00 Simon Fang ESTIMATED GFR 2020-01-02 21:36:00 Simon Fang odist MANUAL DIFFERENTIAL 2020-01-02 21:36:00 Simon Fang HC COMPLETE BLD COUNT 2019-11-29 13:30:00 Enrike Akbar W/AUTO DIFF BASIC METABOLIC PANEL 2019-11-29 13:30:00 Enrike Akbar ESTIMATED GFR 2019-11-29 13:30:00 Enrike Akbar ethodist SURGICAL PATHOLOGY 2019-07-07 11:16:00 Niki Hanks REQUEST [place] AN ELECTIVE 2019-07-07 08:31:46 Isrrael Hurt odist ENDOTRACHEAL AIRWAY SINUS SURGERY, ENDOSCOPIC 2019-07-07 07:55:00 Niki Hanks History of Sinus surgery [facility] Physicians History of Appendectomy [facility] laparoscopic Physicians Appendix operation [facility] Ovarian cystectomy [facility] Removal<sup>1</sup> [facility] Plan of Care Planned Activity Planned Date Details Comments Source Future Scheduled 2020-06-[address] [facility] - Test 00:00:00 (#1) [code = [facility] INFLUENZA VACCINE (#1)] Future Scheduled 2020-05-27 . [facility] Test 00:00:00 COVID-19/SARS-Cov-2 Physicia ns [code = . [facility] COVID-19/SARS-Cov-2] Future Scheduled 2020-05-08 INFLUENZA VACCINE Inge alvarez [facility] Test 00:00:00 [code = INFLUENZA VACCINE] Future Scheduled [address] [facility] - Test 00:00:00 malignant neoplasm of Medica l Center cervix (procedure) [code = 928848111] Future Scheduled 2004 Screening for [facility] thodist Test 00:00:00 malignant neoplasm of cervix (procedure) [code = 376241236] Future Scheduled [address] [facility] - Test 00:00:00 2-64 YEARS AT RISK (1 Medica l Center of 1 - PPSV23) [code = PNEUMOCOCCAL VACCINE 2-64 YEARS AT RISK (1 of 1 - PPSV23)] Encounters Start End Encounter Admission Attending Care Care Encounter Source Date/Time Date/Time Type Type Clinicians Facility Department ID 2020-06-29 2020-06-29 Outpatient Christopher [facility] [id number] 10:27:00 23:59:00 Chavez 00 Agapito 2020-06-29 2020-06-29 Outpatient Christopher [facility] [id number] 10:27:00 23:59:00 Chavez 00 Agapito 2020-06-29 2020-06-29 Outpatient [facility] [address] [facility] 10:27:00 10:27:00 2020-06-08 2020-06-08 [id number] Univers 14:45:00 14:45:00 t; KANU MILLER M.D. lty - itToma M.D. [facility] Physici ans 2020-06-02 2020-06-02 SARAH Mejia [facility] [id number] Univers 09:15:00 09:15:00 t; KANU MILLER M.D. ity of TODD, M.D. [place] Physici ans 2020-05-27 2020-05-27 Appointmen CO19, [facility] [id number] Univers 14:00:00 14:00:00 t; CO19, PROVIDERROS i ty of VASHTI PALACIOS [facility] Physici ans 2020 2020 Outpatient Melinda [facility] [id number] 10:30:00 23:59:00 Kanu Sung 00 2020 2020 Outpatient Melinda [facility] [id number] 10:30:00 23:59:00 Kanu D 00 2020-05-11 2020-05-11 SARAH Mejia [facility] [id number] Univers 12:45:00 12:45:00 t; KANU MILLER M.D. Surgery - itToma M.D. [facility] Physici Center ans 2020-04-14 2020-04-14 Emergency BOYAREDDIGA [facility] [id number] [place] 00:00:00 00:00:00 RI, [address] 2020-03-25 2020-03-25 Outpatient LETITIAFORMERLY [facility] [id number] [place] 00:00:00 00:00:00 ANN [address] 2020-02-20 2020-02-20 Outpatient LETITIA, [facility] [id number] [place] 00:00:00 00:00:[address] 2020-02-20 2020-02-20 Outpatient LETITIA, [facility] [id number] [place] 00:00:00 00:00:[address] ANN [address] 2020-02-12 2020-02-12 Outpatient LETITIA, [facility] [id number] [place] 00:00:00 00:00:00 ANN 900 Method i 2020-01-02 2020-01-02 Emergency DENISSE, [facility] [id number] [place] 00:00:00 00:00:00 JOSEPH 449 Method i 2019-12-30 2019-12-30 Office Ted BC 1.2.840.114 [id number] 08:45:00 12:05:01 Visit Jani Canales AMBULATOR 350.1.13.21 Y 0.2.7.2.686 [id number] 2019-12-11 2019-12-11 Office AmanuelDarius BCM 1.2.840.114 [id number] 08:43:28 09:13:28 Visit AMBULATOR 350.1.13.21 Y 0.2.7.2.686 [id number] 2019-11-29 2019-11-29 Emergency BRANDIE, [facility] [id number] [place] 00:00:00 00:00:00 ENRIKE 608 Method i 2019-11-20 2019-11-20 Office Darius Vital BCM 1.2.840.114 [id number] 15:35:12 17:22:48 Visit AMBULATOR 350.1.13.21 Y 0.2.7.2.686 [id number] 2019-10-23 2019-10-23 Office Keyon BCM 1.2.840.114 [id number] 14:18:19 14:42:48 Visit Niki Flores AMBULATOR 350.1.13.21 Y 0.2.7.2.686 [id number] 2019-07-21 2019-07-21 Office DANITZA Hoffmann 1.2.840.114 [id number] 15:57:27 16:48:02 Visit Juan AMBULATOR 350.1.13.21 Y 0.2.7.2.686 [id number] 2019-07-17 2019-07-17 Office Darius Vital 1.2.840.114 [id number] 13:57:41 16:44:38 Visit AMBULATOR 350.1.13.21 Y 0.2.7.2.686 [id number] 2019-07-15 2019-07-15 Office DANITZA Hanks 1.2.840.114 [id number] 08:45:43 09:19:29 Visit Niki Flores AMBULATOR 350.1.13.21 Y 0.2.7.2.686 [id number] 2019-07-07 2019-07-07 Outpatient [facility] [id number] [place] [address] 00:00:00 00:00:00 NIKI [address] 2019-06-06 2019-06-06 Office DANITZA Hanks 1.2.840.114 [id number] 08:36:31 09:47:46 Visit Niki Flores AMBULATOR 350.1.13.21 Y 0.2.7.2.686 [id number] 2019-05-20 2019-05-20 Office DANITZA Hanks 1.2.840.114 [id number] 08:51:28 11:36:03 Visit Niki Flores AMBULATOR 350.1.13.21 Y 0.2.7.2.686 [id number] 2019-05-19 2019-05-19 Office DANITZA Hoffmann 1.2.840.114 [id number] 15:53:45 16:47:07 Visit Juan AMBULATOR 350.1.13.21 Y 0.2.7.2.686 [id number] 2019-04-08 2019-04-09 [facility] [id number] 16:31:00 11:20:00 Barney Alvarez 83 2019-04-08 2019-04-09 [facility] [id number] 16:31:00 11:20:00 Barney Alvarez 83 2019-04-08 2019-04-08 Outpatient [facility] [id number] [facility] 16:31:00 16:31:00 fox Landa [facility] 2017-04-12 2017-04-12 Outpatient Michael, [facility] [id number] 17:17:00 23:59:00 Kyle 00 Arnulfo Results Test Description Test Time Test Comments Results Result Comments Source IMMUNOLOGY 2020-06-[address] [facility] 18:10:00 IMMUNOLOGY 2020-06-[address] [facility] 18:10:00 IMMUNOLOGY 2020-06-[address] [facility] 18:10:00 IMMUNOLOGY 2020-06-[address] [facility] 18:10:00 . [facility] - Surgical Biopsy 2020-06-02 00:00:00 Test Item Value Reference Range Interpretation Comme nts Case (test code = Case) Click ImageLink button for report. N [facility] Phys[facility]. [facility] COVID-19/[id number] 00:00:00 Test Item Value Reference Range Interpretation Comments SARS-CoV-2 REPORT ClinicalHistory: E55.9 N (test code = Vitamin D SARS-CoV-2 REPORT) deficiency.COVID-19/FELIX S-CoV-2: COVID-19/SARS-CoV-2: Negative.BodySite: Nasopharyngeal.Special Requests: COVID-19/SARS-Cov-2.CPT Code: 86216.ICDCode: E55.9. [facility] Stomach emptying [id number] 17:02:00EXAM: [place] Gastric Emptying ImagingDATE: 2020 10:55 CDTINDICATION: - Gastritis and gastroesophageal reflux, evaluate for gastricemptying.COMPARISON: None.TECHNIQUE:After oral administration of 1 mCi of Tc 99m sulfur colloid in solid phasemeal, sequential static images were obtained through approximately 90 minutes.Additional 4 hour delayed static images were also obtained.FINDINGS:Tracer is seen in the stomach with gradual progress to the small bowel duringthe time of the study. The calculated time for emptying half of the contents ofthe stomach is 120 minutes which is prolonged (normal is less than 90 minutes).The percent retention of the meal is 60% and 0.7% at 90 minutes and 4 hourshours (normal is less than 10% at 4 hours). There is no evidence of esophagealreflux during the time of the study.IMPRESSION: 1. Delayed early gastric emptying for solid phase meal with normal gastricemptyingat 4 hours.2. There is 0.7% retention of the meal at 4 hours.--This report was dictated by a Mortgage Loan Processor/Fellow/Physician Shank Skinner. Ihave personallyreviewed the images as well as the interpretation and agree with the findings.Read by: Enrike Reardon MD Resident/Fellow/PhysicianAssistant: Enrike Reardon MDDictated Date/time: 05/26/20 12:04Electronically Signed by: Sofia Culp MD 05/26/2014:19FINAL REPORT [facility] PhysiciansUrine [id number] 21:17:07 Test Item Value Reference Range Interpretation Comments Urine culture Mixed jeancarlos Specimen isolate (test <=10-3 col/cc InformationSp ecimen code = 68348-4) Source: Urin eSpecimen Site: Urine, cl tabitha catch [facility] [id number] 17:39:49 Test Item Value Reference Range Interpretation Comments Sodium (test code = 2951-2) 138 135- 148 mEq/L Potassium (test code = 2823-3) 4.0 3.5- 5.0 mEq/L Chloride (test code = 2075-0) 105 98- 112 mEq/L CO2 (test code = 2027-9) 23 24- 31 mEq/L L Anion gap (test code = 36718-3) 10@ANIO 7- 15 mEq/L BUN (test code = 3094-0) 10 mg/dL 6-20 Creatinine (test code = 2160-0) 0.73 mg/dL 0.5-0.9 Glucose (test code = 2345-7) 89 mg/dL 65-99 Calcium (test code = 66145-2) 9.3 mg/dL 8.3-10.2 Protein (test code = 2885-2) 6.8 g/dL 6.3-8.3 Albumin (test code = 1751-7) 4.3 g/dL 3.5-5 A/G ratio (test code = 1759-0) 1.7 0.7-3.8 Alkaline phosphatase (test code = 45 U/L 35-104 6768-6) AST (test code = 1920-8) 20 U/L 10-35 ALT (test code = 1742-6) 15 U/L 5-50 Total bilirubin (test code = 0.6 mg/dL 0-1.2 1974-11) Lab Interpretation (test code = Abnormal 79222-7) Lazar MethodistEstimated [id number] 17:39:49 Test Item Value Reference Range Interpretation Comments Estimated GFR (test >=90 mL/min/1.73 m2 [employer] Units code = 5488) InterpretationG 1 >=90 Normal or highG2 60-89 Mildly alceuxltmX8g 45-59 Mildly to mode rately eixzjimsgF2a 30-44 Moderately to severely decreasedG4 15-29 Severely decre asedG5 <15 Kidn ey failureThe eGFR was calculated usin g the Chronic Kidney Disease Epidemiology Co llaboration (CKD-EPI) equat ion. Interpretation is based on recommendations of the National Kidney Foundation-Kidn ey Disease Outcomes Qualit y Initiative (NKF-KDOQI) pub lished in 2014. [place] CristoistUS Pelvic [id number] 17:36:25Hm Interface, Radiology Results 04/14/2020 5:39 PM CDTEXAMINATION: US PELVIC TRANSABDOMINAL, US PELVIC TRANSVAGINALCLINICAL HISTORY: right pelvic painCOMPARISON: None.TECHNIQUE:Transabdominal and endovaginal sonographic images of the pelvis were obtained. Grayscale, color Doppler, and spectral waveform analysis of the ovarian vessels was performed.FINDINGS:The uterus is heterogeneous in echotexture. At least 2 intramural fibroids are seen measuring 1.8 x 1.1 x 1.1 cm and 0.9 x 1.4 x 1.1 cm. The uterus measures 10.2 x 4.1 x 5.4 cm.. An IUD is noted and appears to be in satisfactory placement. The endometrial stripe is unremarkable and measures 2.7 mm..The left ovary is not seen. Scattered right ovarian follicles are noted. The right ovary is otherwise unremarkable. The right ovary measures 2.9 x 2 x 2.4 cm. Normal Doppler flow was present.There is no fluid in the pelvic cul-de-sac.Impression:Unremarkable transabdominal and endovaginal pelvic ultrasound examination with the exception of uterine fibroids.[id number] 2020-04-14 17:36:25Hm Interface, Radiology Results 04/14/2020 5:39 PM CDTEXAMINATION: US PELVIC TRANSABDOMINAL, US PELVIC TRANSVAGINALCLINICAL HISTORY: right pelvic painCOMPARISON: None.TECHNIQUE:Transabdominal and endovaginal sonographic images of the pelvis were obtained. Grayscale, color Doppler, and spectral waveform analysis of the ovarian vessels was performed.FINDINGS:The uterus is heterogeneous in echotexture. At least 2 intramural fibroids are seen measuring 1.8 x 1.1 x 1.1 cm and 0.9 x 1.4 x 1.1 cm. The uterus measures 10.2 x 4.1 x 5.4 cm.. An IUD is noted and appears to be in satisfactory placement. The endometrial stripe is unremarkable and measures 2.7 mm..The left ovary is not seen. Scattered right ovarian follicles are noted. The right ovary is otherwise unremarkable. The right ovary measures 2.9 x 2 x 2.4 cm. Normal Doppler flow was present.There is no fluid in the pelvic cul-de-sac.Impression:Unremarkable transabdominal and endovaginal pelvic ultrasound examination with the exception of uterine fibroids.[id number] [facility] Renal Stone [id number] 16:06:37Hm Interface, Radiology Results 04/14/2020 4:09 PM CDTEXAMINATION: CT RENAL STONE PROTOCOLCLINICAL HISTORY: Flank pain stone disease suspectedTECHNIQUE: Multiple axial images of the abdomen and pelvis were obtained without intravenous administration of iodinated contrast. Sagittal and coronal computerized reformatted images were also obtained. The lack of intravenous contrast reduces the sensitivity of detecting solid organ disease. CT imaging was performed with iterative reconstruction technique and/or automated exposure control to reduce radiation dose. COMPARISON: None.FINDINGS:The lung bases are clear. No free intraperitoneal air or fluid.Abdomen: Punctate calcified granuloma inferior aspect right lobe liver. Liver otherwise grossly unremarkable noncontrast exam.Spleen unremarkable.Gallbladder grossly unremarkable. No biliary dilatation.Adrenal glands normal size.Pancreas normal in gross appearance.Abdominal aorta normal caliber. No abdominal adenopathy.Scattered fecal material in the colon. No bowel obstruction or distention in the abdomen.Kidneys are normal in size. Punctate less than 3 mm nonobstructing calyceal calculus on the right.No hydronephrosis on either side. Noobvious renal mass.Pelvis: Surgical clips medial to the cecum. Suspect post appendectomy change. Theappendix is not seen.Moderate fecal material throughout the colon. No bowel obstruction. No diverticulitis.Uterus is enlarged to 10.4 cm. An IUD appears well placed.No adnexal mass identified.Urinary bladder grossly unremarkable.No pelvic mass or sidewall adenopathy.The visualized skeleton is intactIMPRESSION:Punctate nonobstructing intrarenal calculus on the right.No hydronephrosis on either side.Postappendectomy changes.No diverticulitis or bowel obstructionModerate fecal material throughout the colonEnlarged uterus to 10.4 cm6OM1RAD_PS01[facility] MethodistCBC with platelet and uxvvojughlcv1142-93-92 15:40:14 Test Item Value Reference Range Interpretation Comments WBC (test code = 54786-2) 7.78 4.50- 11.00 k/uL RBC (test code = 67513-2) 4.37 m/uL 4.2-5.5 HGB (test code = 718-7) 13.4 g/dL 12-16 HCT (test code = 4544-3) 39.5 % 37-47 MCV (test code = 787-2) 90.4 fL 82-100 MCH (test code = 785-6) 30.7 pg 27-34 MCHC (test code = 786-4) 33.9 g/dL 31-37 RDW - SD (test code = 70563-3) 42.0 fL 37-55 MPV (test code = 32321-0) 11.5 fL 8.8-13.2 Platelet count (test code = 206 150- 400 k/uL 49072-4) Neutrophils (test code = 26678-3) 60.9 % 39-69 Lymphocytes (test code = 16424-0) 31.4 % 25-45 Monocytes (test code = 90823-2) 4.6 % 0-10 Eosinophils (test code = 49608-8) 2.6 % 0-5 Basophils (test code = 81875-2) 0.5 % 0-1 [facility] MethodisthCG qualitative, urine tspomm8958-30-69 15:31:29 Test Item Value Reference Range Interpretation Comments hCG qualitative, Negative Sensitivity of HCG test: urine (test code = 25 mIU/mL Negative test 6-3) results in cathryn ents suspected to be should be retes harpreet with a sample obtained 48-72 hours later, or by performing a qu antitative assay. [facility] NnkszcchjLjbduoytrh1175-87-32 15:14:33 Test Item Value Reference Range Interpretation Comments Glucose, UA (test code = 18503-4) Negative Negative Bilirubin, UA (test code = 5770-3) Negative Negative Ketones, UA (test code = 2514-8) Negative Negative Specific gravity, UA (test code = 1.020 1.001-1.035 5811-5) Blood, UA (test code = 5794-3) Trace Negative A pH, UA (test code = 5803-2) 7.0 5.0-8.5 Protein, UA (test code = 12524-4) Negative Negative Urobilinogen, UA (test code = <2.0 <2.0 43831-8) Nitrite, UA (test code = 5802-4) Negative Negative Leukocyte esterase, UA (test code = Negative Negative 5799-2) Color, UA (test code = 5778-6) Yellow Appearance, UA (test code = 5767-9) Clear Lab Interpretation (test code = Abnormal 81235-0) [facility] MethodistLipid idewm4727-70-63 16:14:00 Test Item Value Reference Range Interpretation Comments Cholesterol, total 197 mg/dL <200 (test code = 2093-3) HDL cholesterol 50 mg/dL > OR = 50 (test code = 2085-9) Triglycerides (test 95 mg/dL <150 code = 2571-8) LDL cholesterol 127 mg/dL (calc) H Reference ra nge: calculated (test <100 Desira ble code = 14768-2) range <100 m g/dL for primary prevention; <7 0 mg/dL for patients with C HD or diabetic patients with > or = 2 CHD risk factors. LDL-C is now calculated using the Goldie calculation, which is a validated novel method providin g better accuracy than the Friedewald equation in the estimation of LDL-C. Shantanu S S et al. RICHAR. 2013;310(19): 9445-4419 (http://educati on .[employer] .com/faq/XUS748 ) Cholesterol/HDL 3.9 <5.0 (calc) ratio (test code = 9830-1) Non-HDL cholesterol 147 <130 mg/dL H For cathryn ents with (test code = (calc) diabetes plus 1 04434-3) major ASCVD ris k factor, treatin g to a non-HDL-C goal of <100 mg/dL (LDL-C of <70 mg/dL) is considered a therapeutic option. RAC (test code = Performing RAC) Organization Information: Site ID: [facility] Address: [address] [place] [address] Director: Eyad Queen Lab Interpretation Abnormal (test code = 54699-0) [facility] natriuretic uqzdqrt2322-07-86 16:14:00 Test Item Value Reference Range Interpretation Comments BNP (test 6 pg/mL <100 BNP levels inc rease code = with age in the 96193-7) generalpopulati on with the highest ta ues seen inindividuals g reater than 75 years o f age.Reference: J. Am. Jolie. Cardiol. 2002; 40:976-982. RAC (test Performing code = RAC) Organization Information: Site ID: [facility] Address: [address] [place] [id number] Director: Eyad Queen [facility] MethodistRespiratory pathogen bbvnj9021-43-00 02:19:31 Test Item Value Reference Interpretation Comments Range Respiratory Positive for A Specimen pathogen panel Rhinovirus/Enterovirus-- I nformationSpecimen (test code = Neg Serena rce: 2148) ative for all other [facility] Site: pathogens Left tested:Negative for AdenovirusNegative for Coronavirus NVS7Sssnsaoa for Coronavirus VJ22Hrztanbb for Coronavirus 229ENegative for Coronavirus SD07Rjxojapd for Human MetapneumovirusNegative for Influenza ANegative for Influenza A/R5Cfjckiwc for Influenza A/K9Itprurhl for Influenza A/H1-2009Negative for Influenza BNegative for Parainfluenza Virus 1Negative for Parainfluenza Virus 2Negative for Parainfluenza Virus 3Negative for Parainfluenza Virus 4Negative for Respiratory Syncytial VirusNegative for Bordetella pertussisNegative for Chlamydophila pneumoniaeNegative for Mycoplasma pneumoniaeThis real-time PCR assay detects the presence of nucleic acids (RNA or DNA) for the respiratory pathogens listed. A result of "Not-detected" does not exclude the possibility of the presence of one or more pathogens at concentrations less than the detectable limits of the assa Lab Abnormal Interpretation (test code = 80663-6) [facility] MethodistManual lclvpfqalovm8686-39-75 01:17:06 Test Item Value Reference Range Interpretation Comments Manual differential (test code = PERFORMED 83245-1) Neutrophils (test code = 78.0 % 39-69 H 54347-8) Lymphocytes (test code = 16.0 % 25-45 L 00760-8) Monocytes (test code = 76510-9) 6.0 % 0-10 Eosinophils (test code = 0.0 % 0-5 15276-3) Basophils (test code = 46039-3) 0.0 % 0-1 Metamyelocytes (test code = 0 % 740-1) Promyelocytes (test code = 0 % 783-1) Platelet slide review (test code Román adequate = 78685-2) Lab Interpretation (test code = Abnormal 89339-1) [facility] MethodistInfluenza nlcifuk2534-85-79 22:22:09 Test Item Value Reference Range Interpretation Comments Influenza Negative for Specimen antigen (test Influenza A/B [facility] ecimen code = 1604) antigen. [facility] Left [facility] MethodistXR Chest 2 [id number] 21:58:15Hm Interface, Radiology Results 01/02/2020 10:01 PM CDTEXAMINATION: XR CHEST 2 VWCLINICALHISTORY: Shortness of breathCOMPARISON: None available.TECHNIQUE: PA and lateralFINDINGS: 1. No focal airspace consolidation, pleural effusion or pneumothorax. 2. Normal cardiomediastinal silhouette and pulmonary vascularity. 3. No acute or suspicious osseous abnormality. IMPRESSION: No acute cardiopulmonary abnormality. [facility]4CY[facility]36TESolkzoi MethodistBasic metabolic xiaiq0708-66-69 14:14:03 Test Item Value Reference Range Interpretation Comments Sodium (test code = 2951-2) 139 135- 148 mEq/L Potassium (test code = 2823-3) 3.6 3.5- 5.0 mEq/L Chloride (test code = 2075-0) 107 98- 112 mEq/L CO2 (test code = 8-9) 21 24- 31 mEq/L L Anion gap (test code = 63194-1) 11@ANIO 7- 15 mEq/L BUN (test code = 3094-0) 14 mg/dL 6-20 Creatinine (test code = 2160-0) 0.74 mg/dL 0.5-0.9 Glucose (test code = 2345-7) 95 mg/dL 65-99 Calcium (test code = 71634-6) 9.4 mg/dL 8.3-10.2 Lab Interpretation (test code = Abnormal 55610-9) [facility] aqspgmj9403-16-56 13:06:29 Test Item Value Reference Range Interpretation Comments Case number (test code = [id number]) Surgical pathology See link below for report (test code = PDF Lab Report 2255) Result status (test code This is Final Report = [id number]) for [id number] Lazar CilxupfyaDnrbme4731-61-62 08:31:46Isrrael Hurt CRNA 07/07/2019 8:32 AMAirwayPerformed by: Isrrael Hurt CRNAAuthorized by: Erica Fang MD Location: ORUrgency: ElectiveDifficult Airway: No 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/AA: Isrrael Hurt CRNAPerformed by: resident/LOUISE/AAPreoxygenated with 100% O2: Yes C-spine Precautions Maintained Throughout: Yes Mask Ventilation: Easy maskFinal Airway Type: Endotracheal airwayFinal Endotracheal Airway: ETT and reinforced tubeCuffed: Yes Technique Used: Direct laryngoscopyDevices/Methods Used in Placement: Intubating styletInsertion Site: OralBlade Type: MillerLaryngoscope Blade/Videolaryngoscope Blade Size: 2ETT Size (mm): 6.5Cuff at minimum occlusion pressure: Yes Measured from: TeethETT to Teeth (cm): 20Placement Verified by: CO2 detection, direct visualization and equal breath sounds Laryngoscopic view: Grade I - full view of glottisRapid Sequence Induction (RSI): NoModified RSI: No Number of Attempts at Approach: 1 [facility] & AUTO [id number] 06:11:00 Test Item Value Reference Range Interpretation Comments WHITE BLOOD CELL COUNT (BEAKER) 17.5 K/ L 3.5-10.5 H (test code = 775) RED BLOOD CELL COUNT (BEAKER) 3.90 M/ L 3.93-5.22 L (test code = 761) HEMOGLOBIN (BEAKER) (test code = 12.1 GM/DL 11.2-15.7 410) HEMATOCRIT (BEAKER) (test code = 37.0 % 34.1-44.9 411) MEAN CORPUSCULAR VOLUME (BEAKER) 94.9 fL 79.4-94.8 H (test code = 753) MEAN CORPUSCULAR HEMOGLOBIN 31.0 pg 25.6-32.2 (BEAKER) (test code = 751) MEAN CORPUSCULAR HEMOGLOBIN CONC 32.7 GM/DL 32.2-35.5 (BEAKER) (test code = 752) RED CELL DISTRIBUTION WIDTH 14.7 % 11.7-14.4 H (BEAKER) (test code = 412) PLATELET COUNT (BEAKER) (test 176 K/CU MM 150-450 code = 756) MEAN PLATELET VOLUME (BEAKER) 11.6 fL 9.4-12.3 (test code = 754) NUCLEATED RED BLOOD CELLS 0 /100 WBC 0-0 (BEAKER) (test code = 413) NEUTROPHILS RELATIVE PERCENT 81 % (BEAKER) (test code = 429) LYMPHOCYTES RELATIVE PERCENT 13 % (BEAKER) (test code = 430) MONOCYTES RELATIVE PERCENT 5 % (BEAKER) (test code = 431) EOSINOPHILS RELATIVE PERCENT 0 % (BEAKER) (test code = 432) BASOPHILS RELATIVE PERCENT 0 % (BEAKER) (test code = 437) NEUTROPHILS ABSOLUTE COUNT 14.11 K/ L 1.56-6.13 H (BEAKER) (test code = 670) LYMPHOCYTES ABSOLUTE COUNT 2.29 K/ L 1.18-3.74 (BEAKER) (test code = 414) MONOCYTES ABSOLUTE COUNT (BEAKER) 0.94 K/ L 0.24-0.36 H (test code = 415) EOSINOPHILS ABSOLUTE COUNT 0.03 K/ L 0.04-0.36 L (BEAKER) (test code = 416) BASOPHILS ABSOLUTE COUNT (BEAKER) 0.03 K/ L 0.01-0.08 (test code = 417) IMMATURE GRANULOCYTES-RELATIVE 1 % 0-1 PERCENT (BEAKER) (test code = 2801) BASIC METABOLIC [id number] 06:07:00 Test Item Value Reference Range Interpretation Comments SODIUM (BEAKER) 138 meq/L 136-145 (test code = 381) POTASSIUM (BEAKER) 4.1 meq/L 3.5-5.1 (test code = 379) CHLORIDE (BEAKER) 107 meq/L 98-107 (test code = 382) CO2 (BEAKER) (test 25 meq/L 22-29 code = 355) BLOOD UREA NITROGEN 16 mg/dL 7-21 (BEAKER) (test code = 354) CREATININE (BEAKER) 0.69 mg/dL 0.57-1.25 (test code = 358) GLUCOSE RANDOM 118 mg/dL 70-105 H (BEAKER) (test code = 652) CALCIUM (BEAKER) 8.6 mg/dL 8.4-10.2 (test code = 697) EGFR (BEAKER) (test 96 mL/min/1.73 ESTIMA HARPREET GFR IS code = 1092) sq m NOT ACCURATE CREATININE CLEARANCE IN PREDICTING GLOMERULAR FILTRATION RATE . ESTIMATED GFR I S NOT APPLICABLE FOR DIALYSIS PATIEN TS. BASIC METABOLIC [id number] 08:37:00 Test Item Value Reference Range Interpretation Comments SODIUM (BEAKER) 138 meq/L 136-145 (test code = 381) POTASSIUM (BEAKER) 4.2 meq/L 3.5-5.1 Specimen moderately (test code = 379) hemolyzed CHLORIDE (BEAKER) 113 meq/L 98-107 H (test code = 382) CO2 (BEAKER) (test 16 meq/L 22-29 L code = 355) BLOOD UREA NITROGEN 11 mg/dL 7-21 (BEAKER) (test code = 354) CREATININE (BEAKER) 0.72 mg/dL 0.57-1.25 Specimen moderately (test code = 358) hemolyzed GLUCOSE RANDOM 123 mg/dL 70-105 H (BEAKER) (test code = 652) CALCIUM (BEAKER) 7.9 mg/dL 8.4-10.2 L (test code = 697) EGFR (BEAKER) (test 92 mL/min/1.73 ESTIMA HARPREET GFR IS code = 1092) sq m NOT ACCURATE CREATININE CLEARANCE IN PREDICTING GLOMERULAR FILTRATION RATE . ESTIMATED GFR I S NOT APPLICABLE FOR DIALYSIS PATIEN TS. [id number] 08:35:00 Test Item Value Reference Range Interpretation Comments MAGNESIUM (BEAKER) 2.0 mg/dL 1.6-2.6 Specimen moderately (test code = 627) hemolyzed CBC W/PLT COUNT & AUTO [id number] 05:59:00 Test Item Value Reference Range Interpretation Comments WHITE BLOOD CELL COUNT (BEAKER) 17.0 K/ L 3.5-10.5 H (test code = 775) RED BLOOD CELL COUNT (BEAKER) 4.03 M/ L 3.93-5.22 (test code = 761) HEMOGLOBIN (BEAKER) (test code = 12.5 GM/DL 11.2-15.7 410) HEMATOCRIT (BEAKER) (test code = 37.6 % 34.1-44.9 411) MEAN CORPUSCULAR VOLUME (BEAKER) 93.3 fL 79.4-94.8 (test code = 753) MEAN CORPUSCULAR HEMOGLOBIN 31.0 pg 25.6-32.2 (BEAKER) (test code = 751) MEAN CORPUSCULAR HEMOGLOBIN CONC 33.2 GM/DL 32.2-35.5 (BEAKER) (test code = 752) RED CELL DISTRIBUTION WIDTH 14.4 % 11.7-14.4 (BEAKER) (test code = 412) PLATELET COUNT (BEAKER) (test 205 K/CU MM 150-450 code = 756) MEAN PLATELET VOLUME (BEAKER) 11.1 fL 9.4-12.3 (test code = 754) NUCLEATED RED BLOOD CELLS 0 /100 WBC 0-0 (BEAKER) (test code = 413) NEUTROPHILS RELATIVE PERCENT 95 % (BEAKER) (test code = 429) LYMPHOCYTES RELATIVE PERCENT 3 % (BEAKER) (test code = 430) MONOCYTES RELATIVE PERCENT 1 % (BEAKER) (test code = 431) EOSINOPHILS RELATIVE PERCENT 0 % (BEAKER) (test code = 432) BASOPHILS RELATIVE PERCENT 0 % (BEAKER) (test code = 437) NEUTROPHILS ABSOLUTE COUNT 16.17 K/ L 1.56-6.13 H (BEAKER) (test code = 670) LYMPHOCYTES ABSOLUTE COUNT 0.55 K/ L 1.18-3.74 L (BEAKER) (test code = 414) MONOCYTES ABSOLUTE COUNT (BEAKER) 0.20 K/ L 0.24-0.36 L (test code = 415) EOSINOPHILS ABSOLUTE COUNT 0.00 K/ L 0.04-0.36 L (BEAKER) (test code = 416) BASOPHILS ABSOLUTE COUNT (BEAKER) 0.02 K/ L 0.01-0.08 (test code = 417) IMMATURE GRANULOCYTES-RELATIVE 1 % 0-1 PERCENT (BEAKER) (test code = 2801) RAD, CHEST, 1 VIEW, NON [id number] 01:01:00Reason for exam:->for dyspneaShould this be performed at the bedside?->YesFINAL REPORT Chest, 1 view. History: Dyspnea Comparison: None available. Findings: The cardiomediastinal silhouette and pulmonary vasculature are within normal limits for a portable exam. The lungs are clear without evidence of consolidation or effusion. The soft tissues and osseous structures are intact. IMPRESSION: No acute cardiopulmonary abnormality. Signed: Georgina Thurman MDReport Verified Date/Time: 06/22/2019 01:01:51 CBC W/PLT COUNT & AUTO [id number] 15:01:00 Test Item Value Reference Range Interpretation Comments WHITE BLOOD CELL COUNT (BEAKER) 30.6 K/ L 3.5-10.5 H (test code = 775) RED BLOOD CELL COUNT (BEAKER) 4.56 M/ L 3.93-5.22 (test code = 761) HEMOGLOBIN (BEAKER) (test code = 14.1 GM/DL 11.2-15.7 410) HEMATOCRIT (BEAKER) (test code = 41.8 % 34.1-44.9 411) MEAN CORPUSCULAR VOLUME (BEAKER) 91.7 fL 79.4-94.8 (test code = 753) MEAN CORPUSCULAR HEMOGLOBIN 30.9 pg 25.6-32.2 (BEAKER) (test code = 751) MEAN CORPUSCULAR HEMOGLOBIN CONC 33.7 GM/DL 32.2-35.5 (BEAKER) (test code = 752) RED CELL DISTRIBUTION WIDTH 13.8 % 11.7-14.4 (BEAKER) (test code = 412) PLATELET COUNT (BEAKER) (test 252 K/CU MM 150-450 code = 756) MEAN PLATELET VOLUME (BEAKER) 11.2 fL 9.4-12.3 (test code = 754) NUCLEATED RED BLOOD CELLS 0 /100 WBC 0-0 (BEAKER) (test code = 413) (CELLAVISION MANUAL DIFF)2019-06-21 15:01:00 Test Item Value Reference Range Interpretation Comments NEUTROPHILS - REL 78 % (CELLAVISION)(BEAKER) (test code = 2816) LYMPHOCYTES - REL 19 % (CELLAVISION)(BEAKER) (test code = 2817) MONOCYTES - REL 2 % (CELLAVISION)(BEAKER) (test code = 2818) BANDS - REL (CELLAVISION)(BEAKER) 1 % 0-10 (test code = 2826) NEUTROPHILS - ABS 23.87 K/ul 1.56-6.13 H (CELLAVISION)(BEAKER) (test code = 2830) LYMPHOCYTES - ABS 5.81 K/ul 1.18-3.74 H (CELLAVISION)(BEAKER) (test code = 2831) MONOCYTES - ABS 0.61 K/uL 0.24-0.36 H (CELLAVISION)(BEAKER) (test code = 2832) BANDS - ABS (CELLAVISION)(BEAKER) 0.31 K/uL 0.00-0.80 (test code = 2840) TOTAL COUNTED (BEAKER) (test code 100 = 1351) WBC MORPHOLOGY (BEAKER) (test code Normal = 487) GIANT PLATELETS (BEAKER) (test Present code = 313) POIKILOCYTES (BEAKER) (test code = 3+ many 966) ROULEAUX (BEAKER) (test code = 1+ few 763) OVALOCYTES (BEAKER) (test code = 1+ few 477) HAYLEY CELLS (BEAKER) (test code = 1+ few 474) ARTIFACT (CELLAVISION)(BEAKER) Present (test code = 3432) PLATELET CONCENTRATION Adequate (CELLAVISION)(BEAKER) (test code = 3438) Received comment: User comments: Slide comments:COMPREHENSIVE METABOLIC PANEL 2019-06-21 14:45:00 Test Item Value Reference Range Interpretation Comments TOTAL PROTEIN 7.6 gm/dL 6.0-8.3 (BEAKER) (test code = 770) ALBUMIN (BEAKER) 4.3 g/dL 3.5-5.0 (test code = 1145) ALKALINE PHOSPHATASE 69 U/L 40-150 (BEAKER) (test code = 346) BILIRUBIN TOTAL 0.8 mg/dL 0.2-1.2 (BEAKER) (test code = 377) SODIUM (BEAKER) (test 141 meq/L 136-145 code = 381) POTASSIUM (BEAKER) 2.9 meq/L 3.5-5.1 L (test code = 379) CHLORIDE (BEAKER) 108 meq/L 98-107 H (test code = 382) CO2 (BEAKER) (test 19 meq/L 22-29 L code = 355) BLOOD UREA NITROGEN 13 mg/dL 7-21 (BEAKER) (test code = 354) CREATININE (BEAKER) 0.85 mg/dL 0.57-1.25 (test code = 358) GLUCOSE RANDOM 87 mg/dL 70-105 (BEAKER) (test code = 652) CALCIUM (BEAKER) 10.1 mg/dL 8.4-10.2 (test code = 697) AST (SGOT) (BEAKER) 17 U/L 5-34 (test code = 353) ALT (SGPT) (BEAKER) 16 U/L 6-55 (test code = 347) EGFR (BEAKER) (test 76 mL/min/1.73 ESTIMA HARPREET GFR IS code = 1092) sq m NOT ACCURATE CREATININE CLEARANCE IN PREDICTING GLOMERULAR FILTRATION RATE . ESTIMATED GFR I S NOT APPLICABLE FOR DIALYSIS PATIEN TS. SCREEN, [id number] 11:12:00 Test Item Value Reference Range Interpretation Comments TEST URINE (BEAKER) (test Negative code = 583) [id number] 08:54:0013.3[facility] OjxrnrpQGCZXTVBMA2224-79-78 08:54:00 40.1[facility] FniyxjiWMWCMGEOMA6976-78-89 08:54:0013.3[facility]annHEMATOLOGY 2019-04-09 08:54:0040.1[facility] ApwyyvhOZRPVCOYBOTRQ0398-64-89 03:52:00Negative *NA*(04/08/19 10:52 PM)[facility] RbskvkeFODSWLBSRN8958-90-82 03:52:00 Test Item Value Reference Range Interpretation Comments INR (test code = INR) 1.19 1 0.85-1.[address] [facility] HospitalJavhdgcPROPEWKQCI7952-49-05 03:52:00 Test Item Value Reference Range Interpretation Comments PT (test code = PT) 14.9 s 12.0-14.[address] [facility] HospitalWlkjcvgLUMQVEYSWS0974-60-17 03:52:00 Test Item Value Reference Range Interpretation Comments PTT (test code = PTT) 30.9 s 22.9-35.[address] [facility] HospitalFpkbitqWOSHNOUJHM5668-24-37 03:52:0039.6[facility]annHEMATOLOGY 2019-04-09 03:52:0013.0[facility] VmxxwieEMVJSNNZFT7984-15-52 03:52:89509Lufjxphe AfxlwwxOPZFIMPALCOTN5352-63-30 03:52:00Negative *NA*(04/08/19 10:52 PM)[facility] HospitalKlegselIQVBNBOPEI5156-72-47 03:52:00 Test Item Value Reference Range Interpretation Comments INR (test code = INR) 1.19 1 0.85-1.[address] [facility] HospitalJoaoqdzDETPKJEUZT9576-47-07 03:52:00 Test Item Value Reference Range Interpretation Comments PT (test code = PT) 14.9 s 12.0-14.[address] [facility] HospitalOiwrzbvATJBZSGRSO6387-41-85 03:52:00 Test Item Value Reference Range Interpretation Comments PTT (test code = PTT) 30.9 s 22.9-35.[address] [facility] HospitalCtvsaxsLXINTDISFK4926-96-77 03:52:0039.6[facility]annHEMATOLOGY 2019-04-09 03:52:0013.0[facility] BzvffjiGIQBBPPTGF4275-89-07 03:52:01224Sqkztngh PaitnaaULWJLAZXAQ3769-12-34 22:19:0013.9[facility] CdjwfynIRJHWXTZKT2064-21-83 22:19:0041.0[facility] ZmtkcfbYJPFKCQWLT4292-75-49 22:19:0018.0[facility] JKKIDDDCRJ0549-86-53 22:19:0096[facility] FyekhvcLNJJDDIUCY4905-92-64 22:19:0084 [facility] FewetwfMYKDGNIGKF3108-06-47 22:19:69484Apgxrjyg HermannHEMATOLOGY 2019-04-08 22:19:005.0[facility] FlvwfhiKUDDFIYYKJ5148-02-79 22:19:0025[facility] YnobgthJQVLZRYLCS9003-22-10 22:19:001.17[facility] RyxxsydJQOKTZZRHI9543-51-85 22:19:000.8[facility] NptpraoVEFSYOSMJB1573-34-93 22:19:0011[facility] HYUBMPJVCY6944-19-03 22:19:54536Xnzuffkd YrbgvijWAQRXZYELM5239-72-46 22:19:00 13.9[facility] AigakigCIVTNCKDIK9923-76-37 22:19:0041.0[facility]annHEMATOLOGY 2019-04-08 22:19:0018.0[facility] DbakuuhRQKUYZEWDA1471-48-19 22:19:0096[facility] FvzxhbfNPKWPDOAGO8465-12-36 22:19:0084[facility] IkqsnsdIWYDPZNAAP9514-33-88 22:19:63773Cpfxljhu AfyzdydGBEHAYWGYJ7996-83-89 22:19:005.0[facility] ELLIQGQNOH0809-38-49 22:19:0025[facility] EnehecmNMKYGNEVXW6633-76-06 22:19:001.17 [facility] PcqtzryFUPQWPKRWG0460-89-44 22:19:000.8[facility] HermannHEMAT[facility] 2019-04-08 22:19:0011[facility] ZavibdrWMVRPJRYCU0254-37-20 22:19:12758Eiqxbwyo HermannCT, MAXILLOFACIAL AREA, MLTAUAWYU1933-31-16 10:01:00FINAL REPORT EXAMINATION: CT of the paranasal sinuses without contrast . HIS TORY: Allergic rhinitis, severe asthma, chronic maxillary sinusitis, edema pharynxCOMPARISON: None.TECHNIQUE: Helical nonenhanced axial images of the paranasal sinuses were obtained with fusion protocol and were reconstructed in bone and soft tissue algorithms. Reformatted bone and soft tissue coronal and bone sagittal images were also provided. Dose modulation, iterative reconstruction, and/or weight based adjustment of the mA/kV was utilized to reduce the radiation dose to as low as reasonablyachievable. FINDINGS:Paranasal sinuses and drainage pathways:Frontal: Clear. Ethmoid: Clear. Maxillary: Clear. Sphenoid: Clear.Ostiomeatal unit: Clear. Sphenoethmoidal recess: Clear. Frontonasal recess: Clear. Others/Anatomic variations: Nasal vestibule and cavity: PatentNasal septum: Grossly at midline.Agger Nasi: Clear bilaterally.Turbinates: Non-aerated bilaterally. Prominence of the inferior turbinates.Zahira cells: Clear Lamina papyracea: Intact.Cribriform plates: Symmetric, about five mm deep to the fovea ethmoidalis.Olfactory recesses: ClearOptic canal: Not dehiscentOnodi cells: None Sphenoid sinuses: The left lateral recess is aerated.Sphenoid septum: Left lateral insertion with dominant right sphenoid sinus. Internal carotid arteries: Do not bulge into the sphenoid sinuses. from the sphenoid sinuses by about 1 mm thick bone. Soft tissues: Face: Unremarkable. Orbits: Unremarkable. Survey Methodologist space: Unremarkable. Pterygopalatine fossa: Unremarkable. Upper airway: Unremarkable. Teeth: No acute abnormality around the roots of the maxillary teeth.Incidentally noted well-circumscribed approximately 15 mm cyst in the anterior/left maxillary midline, consistent with incisive canal cyst (nasopalatine duct cyst), usually an incidental asymptomatic finding.Temporal bones: No abnormalities. TMJs: NormalMastoid air cells: Hyperpneumatization of the left posterior mastoid air cells extending to the left suboccipitalbone region. IMPRESSION: 1.The paranasal sinuses and drainage pathways are clear.2.Mild hypertrophy of the inferior turbinates. Signed: Sylvia Victoria MDReport Verified Date/Time: 02/12/2019 10:01:26 Reading Location: [facility] Reading Room [address] [place] [address] TSH/FREE T4 IF [id number] 14:55:00 Test Item Value Reference Range Interpretation Comments THYROID STIMULATING HORMONE 1.04 uIU/mL 0.35-4.94 (BEAKER) (test code = 772) URIC [id number] 14:36:00 Test Item Value Reference Range Interpretation Comments URIC ACID (BEAKER) (test code = 5.6 mg/dL 2.6-7.2 773) BASIC METABOLIC [id number] 14:36:00 Test Item Value Reference Range Interpretation Comments SODIUM (BEAKER) 142 meq/L 136-145 (test code = 381) POTASSIUM (BEAKER) 4.3 meq/L 3.5-5.1 (test code = 379) CHLORIDE (BEAKER) 105 meq/L 98-107 (test code = 382) CO2 (BEAKER) (test 24 meq/L 22-29 code = 355) BLOOD UREA NITROGEN 11 mg/dL 7-21 (BEAKER) (test code = 354) CREATININE (BEAKER) 0.82 mg/dL 0.57-1.25 (test code = 358) GLUCOSE RANDOM 97 mg/dL 70-105 (BEAKER) (test code = 652) CALCIUM (BEAKER) 9.7 mg/dL 8.4-10.2 (test code = 697) EGFR (BEAKER) (test 80 mL/min/1.73 ESTIMA HARPREET GFR IS code = 1092) sq m NOT ACCURATE CREATININE CLEARANCE IN PREDICTING GLOMERULAR FILTRATION RATE . ESTIMATED GFR I S NOT APPLICABLE FOR DIALYSIS PATIEN TS. LIPID [id number] 14:36:00 Test Item Value Reference Range Interpretation Comments TRIGLYCERIDES (BEAKER) (test code = 76 mg/dL 540) CHOLESTEROL (BEAKER) (test code = 204 mg/dL 631) HDL CHOLESTEROL (BEAKER) (test code 60 mg/dL = 976) LDL CHOLESTEROL CALCULATED (BEAKER) 129 mg/dL (test code = 633) Triglyceride Reference Range: Low Risk <150 Borderline 150-199 High Risk 200-499 Very High Risk >=500Cholesterol Reference Range: Low Risk <200 Borderline 200-239 High Risk >240HDL Cholesterol Reference Range: Low Risk >=60 High Risk <40LDL Cholesterol Reference Range: Optimal <100 Near Optimal 100-129 Borderline 130-159 High 160-189 Very High >=190HEPATIC FUNCTION [id number] 14:36:00 Test Item Value Reference Range Interpretation Comments TOTAL PROTEIN (BEAKER) (test code = 7.7 gm/dL 6.0-8.3 770) ALBUMIN (BEAKER) (test code = 1145) 4.5 g/dL 3.5-5.0 BILIRUBIN TOTAL (BEAKER) (test code 0.9 mg/dL 0.2-1.2 = 377) BILIRUBIN DIRECT (BEAKER) (test 0.3 mg/dL 0.1-0.5 code = 706) ALKALINE PHOSPHATASE (BEAKER) (test 71 U/L 40-150 code = 346) AST (SGOT) (BEAKER) (test code = 22 U/L 5-34 353) ALT (SGPT) (BEAKER) (test code = 15 U/L 6-55 347) [id number] 14:34:00 Test Item Value Reference Range Interpretation Comments PREALBUMIN (BEAKER) (test code = 26 mg/dL 14-45 586) PROTHROMBIN [id number] 14:27:00 Test Item Value Reference Range Interpretation Comments PROTIME (BEAKER) (test code = 14.1 seconds 11.7-14.7 759) INR (BEAKER) (test code = 370) 1.1 <=5.9 RECOMMENDED COUMADIN/WARFARIN INR THERAPY RANGESSTANDARD DOSE: 2.0 - 3.0 Includes: PROPHYLAXIS forvenous thrombosis, systemic embolization; TREATMENT for venous thrombosis and/or pulmonary embolus.HIGH RISK: Target INR is 2.5-3.5 for patients with mechanical heart valves.CBC W/PLT COUNT & AUTO DIFFERENTIAL 2018-01-31 14:26:00 Test Item Value Reference Range Interpretation Comments WHITE BLOOD CELL COUNT (BEAKER) 9.9 K/ L 3.5-10.5 (test code = 775) RED BLOOD CELL COUNT (BEAKER) 4.55 M/ L 3.93-5.22 (test code = 761) HEMOGLOBIN (BEAKER) (test code = 13.3 GM/DL 11.2-15.7 410) HEMATOCRIT (BEAKER) (test code = 42.2 % 34.1-44.9 411) MEAN CORPUSCULAR VOLUME (BEAKER) 92.7 fL 79.4-94.8 (test code = 753) MEAN CORPUSCULAR HEMOGLOBIN 29.2 pg 25.6-32.2 (BEAKER) (test code = 751) MEAN CORPUSCULAR HEMOGLOBIN CONC 31.5 GM/DL 32.2-35.5 L (BEAKER) (test code = 752) RED CELL DISTRIBUTION WIDTH 13.9 % 11.7-14.4 (BEAKER) (test code = 412) PLATELET COUNT (BEAKER) (test 245 K/CU MM 150-450 code = 756) MEAN PLATELET VOLUME (BEAKER) 11.8 fL 9.4-12.3 (test code = 754) NUCLEATED RED BLOOD CELLS 0 /100 WBC 0-0 (BEAKER) (test code = 413) NEUTROPHILS RELATIVE PERCENT 65 % (BEAKER) (test code = 429) LYMPHOCYTES RELATIVE PERCENT 26 % (BEAKER) (test code = 430) MONOCYTES RELATIVE PERCENT 7 % (BEAKER) (test code = 431) EOSINOPHILS RELATIVE PERCENT 1 % (BEAKER) (test code = 432) BASOPHILS RELATIVE PERCENT 1 % (BEAKER) (test code = 437) NEUTROPHILS ABSOLUTE COUNT 6.46 K/ L 1.56-6.13 H (BEAKER) (test code = 670) LYMPHOCYTES ABSOLUTE COUNT 2.53 K/ L 1.18-3.74 (BEAKER) (test code = 414) MONOCYTES ABSOLUTE COUNT (BEAKER) 0.66 K/ L 0.24-0.36 H (test code = 415) EOSINOPHILS ABSOLUTE COUNT 0.14 K/ L 0.04-0.36 (BEAKER) (test code = 416) BASOPHILS ABSOLUTE COUNT (BEAKER) 0.06 K/ L 0.01-0.08 (test code = 417) IMMATURE GRANULOCYTES-RELATIVE 1 % 0-1 PERCENT (BEAKER) (test code = 2801)
--- OUTSIDE RECORDS SUMMARY | 2020-07-03 15:49 | XMS REPORT | Summary of Care ---
:1985 Author Name KANU LAWRENCE M.D. Address Unavailable Unavailable , Care Team Providers Name Role Phone KANU LAWRENCE M.D. Unavailable Unavailable KYLE RODRIGUEZ M.D. Unavailable Unavailable Tariq Crain MD Unavailable Unavailable KANU LAWRENCE MD Unavailable Unavailable Unavailable Unavailable Unavailable Functional Status Name Dates Details Functional status health issues are not documented Status: Name Dates Details Cognitive status health issues are not documented Status: Problems Name Dates Details Gastritis (535.50, K29.70) Status: Activ e Chronic sinusitis (473.9, J32.9) Status: Active GERD (gastroesophageal reflux disease) (530.81, K21.9) Status: Active Abdominal pain (789.00, R10.9) Status: A ctive Asthma (493.90, J45.909) Status: Active Eosinophilic asthma (518.3, J82) Status: Active Nausea (787.02, R11.0) Status: Active Malnutrition (263.9, E46) Status: Active Malabsorption (579.9, K90.9) Status: Act marie Medications Name Dates Details Qvar 80 MCG/ACT AERS Refills: 0 Active predniSONE SOLN Refills: 0 Active Levaquin 750 MG TABS Refills: 0 Active Mucinex Allergy TABS Refills: 0 Active Qnasl AERS Refills: 0 Active Symbicort AERO Refills: 0 Active Mometasone Furoate 50 MCG/ACT Nasal Suspension USE 2 SPRAYS IN EACH NOSTRIL ONCE DAILY Quantity: 1 Refills: 6 KYLE RODRIGUEZ M.D. Start : 09-Apr-2017 Active 17 GM Inhaler Allergies and Adverse Reactions Name Dates Details No Known Allergies (Allergy) Status: Act marie Procedures Procedure Dates Details [Q] QUESTASSURED 25-OH VIT D, (D2,D3), LC/MS/MS Date: 2019 [QL] CBC (INCLUDES DIFF/PLT) Date: 11-May-2020 [QL] CMP W/EGFR Date: 11-May-2020 [QL] FOLATE, SERUM Date: 11-May-2020 [QL] HEMOGLOBIN A1c Date: 11-May-2020 [QL] IRON, TOTAL Date: 11-May-2020 [QL] LIPID PANEL Date: 11-May-2020 [QL] PTH, INTACT (WITHOUT CALCIUM) Date: 11-May-2020 [QL] TSH, 3RD GENERATION W/REFLEX TO FT4 Date: 11-May-2020 [QL] VITAMIN A (RETINOL) Date: 11-May-2020 [QL] VITAMIN B1, WHOLE BLOOD Date: 11-May-2020 [QL] VITAMIN B12 Date: 11-May-2020 [QL] VITAMIN E (TOCOPHEROL) Date: 11-May-2020 [Q] TRYPTOPHAN Date: 11-May-2020 [QL] COPPER Date: 11-May-2020 [QL] MAGNESIUM Date: 11-May-2020 [QL] SELENIUM Date: 11-May-2020 [QL] ZINC, RBC Date: 11-May-2020 Gastric Emptying Study Date: 11-May-2020 History of Sinus surgery Completed History of Appendectomy laparoscopic Com pleted History of Ovarian cystectomy Completed Immunization Name Dates Details Immunizations not documented Family History Name Dates Details No pertinent family history (V49.89, Z78.9) Comments: Other Status: Active Social History Name Dates Details - Status: Name Dates Details Never smoked tobacco (finding) Vital Signs Date Test Result Details [id number] Systolic blood pressure 128 mm[Hg] Status: Comments: Location: LUE; Position: Sitting Diastolic blood pressure 87 mm[Hg] Status: Comment s: Location: LUE; Position: Sitting Body height 66 in Status: Weight 150 lb Status: Body mass index (BMI) [Ratio] 24.21 kg/m2 Status: Body surface area Derived from formula 1.77 m2 S tatus: Body temperature 98.6 f Status: Heart Rate 71 /min Status: Results Date Description Value Details Results not documented Plan of Care Name Dates Details Planned Observations Planned Goals not documented Planned Encounters Appointment; KANU LAWRENCE M.D. On: 08-Jun-2020 14:45 Interventions Provided Labs/Procedures/Imaging[Q] QUESTASSURED 25-OH VIT D, (D2,D3), LC/MS/MS; To Be Done: 11 May 2020[Q] TRYPTOPHAN; To Be Done: 11 May 2020[QL] CBC (INCLUDES DIFF/PLT); To Be Done: 11 May 2020[QL] CMP W/EGFR; To Be Done: 11 May 2020[QL] COPPER; To Be Done: 11 May 2020[QL] FOLATE, SERUM; To Be Done: 11 May 2020[QL] HEMOGLOBIN A1c; To Be Done: 11 May 2020[QL] IRON, TOTAL; To Be Done: 11 May 2020 [QL] LIPID PANEL; To Be Done: 11 May 2020[QL] MAGNESIUM; To Be Done: 11 May 2020 [QL] PTH, INTACT (WITHOUT CALCIUM); To Be Done: 11 May 2020[QL] SELENIUM; To Be Done: 11 May 2020[QL] TSH, 3RD GENERATION W/REFLEX TO FT4; To Be Done: 11 May 2020[QL] VITAMIN A (RETINOL); To Be Done: 11 May 2020[QL] VITAMIN B1, WHOLE BLOOD; To Be Done: 11 May 2020[QL] VITAMIN B12; To Be Done: 11 May 2020[QL] VITAMIN E (TOCOPHEROL); To Be Done: 11 May 2020[QL] ZINC, RBC; To Be Done: 11 May 2020Gastric Emptying Study; To Be Done: 11 May 2020Plan1. EGD with biopsies 2. Gastric emptying study 3. 30 day trial of omeprazole 40 mg qDay 4. Extended bariatric panel 5. Return to clinic after studies are done in 4 weeks Instructions Name Dates Details Instructions not documented Encounters Appointment; KANU LAWRENCE M.D. On: 11-May-2020 12:45 Encounter Diagnosis: Problem not documented
--- OUTSIDE RECORDS SUMMARY | 2020-07-03 15:49 | XMS REPORT | Summary of Care ---
:1985 Author Name Carrie James M.A. Jane Address [facility] Unavailable , Care Team Providers Name Role Phone Jacob Oconnell Carrie Joy Unavailable Unavailable KYLE RODRIGUEZ M.D. Unavailable Unavailable [...] Active Malabsorption (579.9, K90.9) Status: Act marie Vitamin D deficiency (268.9, E55.9) Stat us: Active Screening for viral disease (V73.99, Z11.59) Status: Active Medications Name Dates Details Qvar 80 MCG/ACT [...] 25-OH VIT D, (D2,D3), LC/MS/MS Date: 2019 [Q] TRYPTOPHAN Date: 11-May-2020 . [facility] - COVID-19/SARS-Cov-2 Date: 26-May-2020 Gastric Emptying Study Date: 11-May-2020 History of Sinus surgery Completed History of Appendectomy laparoscopic Com pleted History of Ovarian cystectomy Completed Immunization Name Dates Details Immunizations not documented Family History Name Dates Details No pertinent family history (V49.89, Z78.9) Comments: Other Status: Active Social History Name Dates Details - Status: Name Dates Details Never smoked tobacco (finding) Vital Signs Date Test Result Details [id number] Systolic blood pressure 128 mm[Hg] Status: Comments: [...] of Care Name Dates Details Planned Observations . [facility] - COVID-19/SARS-Cov-2 On: 27-May-2020 Intent Planned Goals not documented Planned Encounters Appointment; KANU LAWRENCE M.D. On: 02-Jun-2020 9:15 Appointment; KANU LAWRENCE M.D. On: 08-Jun-2020 14:45 Instructions Name Dates Details Instructions not documented Encounters Appointment; KANU LAWRENCE M.D. On: 11-May-2020 12:45 Encounter Diagnosis: Problem not documented
--- OUTSIDE RECORDS SUMMARY | 2020-07-03 15:49 | XMS REPORT | Summary of Care ---
:1985 Author Name JOSE HERNANDEZ APRN Address Unavailable Unavailable , Care Team Providers Name Role Phone JOSE HERNANDEZ APRN Unavailable Unavailable MELINDA Smith, KANU Unavailable Unavailable KYLE RODRIGUEZ M.D. Unavailable Unavailable Tariq Crain MD Unavailable Unavailable KANU LAWRENCE MD Unavailable Unavailable Unavailable Unavailable Unavailable Functional Status Name Dates Details Functional status health issues are not documented Status: Name Dates Details Cognitive status health issues are not documented Status: Problems Name Dates Details Chronic sinusitis (473.9, J32.9) Status: Active Asthma (493.90, J45.909) Status: Active Nausea (787.02, R11.0) Status: Active Malnutrition (263.9, E46) Status: Active Malabsorption (579.9, K90.9) Status: Act marie Vitamin D deficiency (268.9, E55.9) Stat us: Active Screening for viral disease (V73.99, Z11.59) Status: Active GERD (gastroesophageal reflux disease) (530.81, K21.9) Status: Active Gastritis (535.50, K29.70) Status: Activ e Eosinophilic asthma (518.3, J82) Status: Active Abdominal pain (789.00, R10.9) Status: A ctive Medications Name Dates Details Qvar 80 MCG/ACT [...] Start : 09-Apr-2017 Active 17 GM Inhaler Vitamin D (Ergocalciferol) 1.25 MG (07314 UT) Oral Capsule Take 1 capsule two times per week Quantity: 8 Refills: 3 JOSE HERNANDEZ APRN Start : 14-Jun-2020 Active Allergies and Adverse Reactions Name Dates Details No Known Allergies (Allergy) Status: Act marie Procedures Procedure Dates Details [Q] QUESTASSURED 25-OH VIT D, (D2,D3), LC/MS/MS Date: 2019 [Q] TRYPTOPHAN Date: 11-May-2020 Gastric Emptying Study Date: 11-May-2020 [...] (finding) Vital Signs Date Test Result Details [id number] Systolic blood pressure 121 mm[Hg] Status: Comments: Location: LUE; Position: Sitting Diastolic blood pressure 85 mm[Hg] Status: Comment s: Location: LUE; Position: Sitting Body height 66 in Status: Weight 147 lb Status: Body mass index (BMI) [Ratio] 23.73 kg/m2 Status: Body surface area Derived from formula 1.75 m2 S tatus: Body temperature 97 f Status: Heart Rate 51 /min Status: Results Date Description Value Details [id number] NM Stomach emptying 29703 Stomach emptying NM SEE NOTES Comments: EX AM: NM Gastric Emptying ImagingDATE: 2020 10:55 CDTINDICATION: - Gastritis and gastroesophageal reflux, evaluate for gastricemptying.COMPARISON: None.TECHNIQUE:After oral administrat ion of 1 mCi of Tc 99m sulfu r colloid in solid phasemeal, sequential static images were obtained through approximately 90 minutes.Additional 4 hour delayed static images were also obtained.FINDINGS:Tracer is seen i n the stomach wi th gradual progress to the small bowel duringthe time of the study. The calculated time for emptying half of the contents ofthe stomach is 120 minutes which is prolonged (normal is less than 90 minutes) .The percent retention of the meal is 60% and 0.7% at 90 minutes and 4 hourshours (normal is less than 10% at 4 hours). There is no evidence of esophagealreflux during the time of the st udy.IMPRESSION: 1. Delayed early gastric emptying for solid phase meal with normal gastricemptying at 4 hours.2. There is 0.7% retention of the meal at 4 hours.--This report was dictated by a Radiolo gy Resident/Fell ow/Physician Polymerization Supervisor. Ihave personallyreviewed the images as well as the interpretation and agree with the findings.Read by: Bryant Reardon MD Resident/Fellow/Physi cianAssistant: Bryant Reardon MDDictated Date/time: 05/26/20 12:04Electronically Signed by: Sofia Culp MD 05/26/2014:19FINAL REPORT :00 . [facility] - COVID-19/SARS-Cov-2 SARS-CoV-2 REPORT ClinicalHistory: E55.9 Vitamin D deficiency.COVID-19/SARS-CoV-2: COVID-19/SARS-CoV-2: Negative.BodySite: Nasopharyngea l.Special Requests: COVID-19/SARS-Cov-2.CPTCode: [id number].ICDCode: E55.9. (Normal) :00 . [facility] - Surgical Biopsy Case Click ImageLink button for repor t. (Normal) Plan of Care Name Dates Details Planned Observations Planned Goals not documented Interventions Provided Medication ChangesVitamin D (Ergocalciferol) 1.25 MG (60561 UT) Oral Capsule - StartPlan1. Refer to Dr. Scott White for abdominal pain. Instructions Name Dates Details Instructions not documented Encounters Appointment; KANU LAWRENCE M.D. On: 11-May-2020 12:45 Encounter Diagnosis: Problem not documented Appointment; ASH CORTÉS On: 27-May-2020 1 4:00 Encounter Diagnosis: Problem not documented Appointment; KANU LAWRENCE M.D. On: 08-Jun-2020 14:45 Encounter Diagnosis: Problem not documented
--- OUTSIDE RECORDS SUMMARY | 2020-07-03 15:49 | XMS REPORT | Summary of Care ---
:1985 Author Name Jacob Oconnell Carrie Joy Address [facility] Unavailable , Care Team Providers Name Role Phone MELINDA Smith, KANU Unavailable Unavailable KYLE RODRIGUEZ [...] A ctive Asthma (493.90, J45.909) Status: Active Nausea (787.02, R11.0) Status: Active Malnutrition (263.9, E46) Status: Active Malabsorption (579.9, K90.9) Status: Act marie Vitamin D deficiency (268.9, E55.9) Stat us: Active Screening for viral disease (V73.99, Z11.59) Status: Active Eosinophilic asthma (518.3, J82) Status: Active Medications Name Dates Details Qvar [...] (finding) Vital Signs Date Test Result Details [id number] Systolic blood pressure 121 mm[Hg] Status: Comments: Location: LUE; Position: Sitting Diastolic blood pressure 85 mm[Hg] Status: Comment s: Location: LUE; Position: Sitting Body height 66 in Status: Weight 147 lb Status: Body mass index (BMI) [Ratio] 23.73 kg/m2 Status: Body surface area Derived from formula 1.75 m2 S tatus: Body temperature 97 f Status: Heart Rate 51 /min Status: [id number] Systolic blood pressure 128 mm[Hg] Status: Comments: [...] Details Planned Observations Planned Goals not documented Instructions Name Dates Details Instructions not documented Encounters Appointment; KANU LAWRENCE M.D. On: 11-May-2020 12:45 Encounter Diagnosis: Problem not documented Appointment; ASH CORTÉS On: 27-May-2020 1 4:00 Encounter Diagnosis: Problem not documented Appointment; KANU LAWRENCE M.D. On: 08-Jun-2020 14:45 Encounter Diagnosis: Problem not documented
--- OUTSIDE RECORDS SUMMARY | 2020-07-03 15:49 | XMS REPORT | Summary of Care ---
:1985 Author Name Jacob Oconnell Carrie Joy Address [facility] Unavailable , Care Team Providers Name [...] (finding) Vital Signs Date Test Result Details [id number] Systolic blood pressure 128 mm[Hg] Status: Comments: [...] Observations Planned Goals not documented Interventions Provided Labs/Procedures/Imaging[Q] QUESTASSURED 25-OH VIT D, [...] Be Done: 11 May 2020Plan1. EGD with biopsy 2. Gastric emptying study 3. 30 day trial PPI trial 4. Extended bariatric panel 5. Return to clinic after studies. Instructions Name Dates Details Instructions not documented Encounters Appointment; KANU LAWRENCE M.D. On: 11-May-2020 12:45 Encounter Diagnosis: Problem not documented
--- OUTSIDE RECORDS SUMMARY | 2020-07-03 15:49 | XMS REPORT | Summary of Care ---
[...] NOSTRIL ONCE DAILY Quantity: 1 Refills: 6 KLYE RODRIGUEZ M.D. Start : 09-Apr-2017 Active 17 [...] (finding) Vital Signs Date Test Result Details [id number] Systolic blood pressure 121 mm[Hg] Status: Comments: Location: LUE; Position: Sitting Diastolic blood pressure 85 mm[Hg] Status: Comment s: Location: LUE; Position: Sitting Body height 66 in Status: Weight 147 lb Status: Body mass index (BMI) [Ratio] 23.73 kg/m2 Status: Body surface area Derived from formula 1.75 m2 S tatus: Body temperature 97 f Status: Heart Rate 51 /min Status: [id number] Systolic blood pressure 128 mm[Hg] Status: Comments: [...] Observations Planned Goals not documented Interventions Provided Plan1. Refer to Dr. Scott White for abdominal pain. Instructions Name Dates Details Instructions not documented Encounters Appointment; KANU LAWRENCE M.D. On: 11-May-2020 12:45 Encounter Diagnosis: Problem not documented Appointment; ASH CORTÉS On: 27-May-2020 1 4:00 Encounter Diagnosis: Problem not documented Appointment; KANU LAWRENCE M.D. On: 08-Jun-2020 14:45 Encounter Diagnosis: Problem not documented
--- OUTSIDE RECORDS SUMMARY | 2020-07-03 15:50 | XMS REPORT | Summary of Care ---
:1985 Author Name Carrie James M.A. Address [facility] Unavailable , Care Team Providers Name Role Phone JOSE HERNANDEZ APRN Unavailable Unavailable Carrie James M.A. Unavailable Unavailable KYLE RODRIGUEZ M.D. Unavailable Unavailable [...] GM Inhaler Vitamin D (Ergocalciferol) 1.25 MG (36356 UT) Oral Capsule Take 1 capsule two [...] (finding) Vital Signs Date Test Result Details [id number] Systolic blood pressure 121 mm[Hg] Status: Comments: [...] /min Status: Results Date Description Value Details [id number] . [facility] - Surgical Biopsy Case Click ImageLink button for repor t. (Normal) Plan of Care Name Dates Details Planned Observations Planned Goals not documented Planned Encounters Gastroenterology Referral Instructions Name Dates Details Instructions not documented Encounters Appointment; KANU LAWRENCE M.D. On: 11-May-2020 12:45 Encounter Diagnosis: Problem not documented Appointment; COASH Schaefer On: 27-May-2020 1 4:00 Encounter Diagnosis: Problem not documented Appointment; KANU LAWRENCE M.D. On: 02-Jun-2020 9:15 Encounter Diagnosis: Problem not documented Appointment; KANU LAWRENCE M.D. On: 08-Jun-2020 14:45 Encounter Diagnosis: Problem not documented
--- OUTSIDE RECORDS SUMMARY | 2020-07-03 15:50 | XMS REPORT | Summary of Care ---
:1985 Author Name Cher Bella Address [facility] Unavailable , Care Team Providers Name Role Phone JOSE HERNANDEZ APRN Unavailable Unavailable KYLE RODRIGUEZ M.D. Unavailable Unavailable Cher Bella Unavailable Unavailable Tariq Crain MD Unavailable Unavailable KANU LAWRENCE MD Unavailable Unavailable Unavailable Unavailable Unavailable Functional Status Name Dates Details Functional status health issues are not documented Status: Name Dates Details Cognitive status health issues are not documented Status: Problems Name Dates Details Asthma (493.90, J45.909) Status: Active Nausea (787.02, R11.0) Status: Active Eosinophilic asthma (518.3, J82) Status: Active Abdominal pain (789.00, R10.9) Status: A ctive GERD (gastroesophageal reflux disease) (530.81, K21.9) Status: Active Gastritis (535.50, K29.70) Status: Activ e Malabsorption (579.9, K90.9) Status: Act marie Malnutrition (263.9, E46) Status: Active Screening for viral disease (V73.99, Z11.59) Status: Active Vitamin D deficiency (268.9, E55.9) Stat us: Active Chronic sinusitis (473.9, J32.9) Status: Active Medications Name Dates Details Qvar [...] GM Inhaler Vitamin D (Ergocalciferol) 1.25 MG (33047 UT) Oral Capsule Take 1 capsule two times per week Quantity: 8 Refills: 3 JOSE HERNANDEZ APRN Start : 14-Jun-2020 Active Allergies and Adverse Reactions Name Dates Details No Known Allergies (Allergy) Status: Act marie Procedures Procedure Dates Details [Q] QUESTASSURED 25-OH VIT D, (D2,D3), LC/MS/MS Date: 2019 [Q] TRYPTOPHAN Date: 11-May-2020 Gastric Emptying Study Date: 11-May-2020 History of Ovarian cystectomy Completed History of Appendectomy laparoscopic Com pleted History of Sinus surgery Completed Immunization Name Dates Details Immunizations not documented Family History Name Dates Details No pertinent family history (V49.89, Z78.9) Comments: Other Status: Active Social History Name Dates Details - Status: Name Dates Details Never smoked tobacco (finding) Vital Signs Date Test Result Details [id number] Systolic blood pressure 121 mm[Hg] Status: Comments: [...] /min Status: Results Date Description Value Details [id number] . [facility] - Surgical Biopsy Case Click ImageLink button for repor t. (Normal) Plan of Care Name Dates Details Planned Observations Planned Goals not documented Instructions Name Dates Details Instructions not documented Encounters Appointment; KANU LAWRENCE M.D. On: 11-May-2020 12:45 Encounter Diagnosis: Problem not documented Appointment; CONAOMIE SchaeferMILWAUKEEJOSE On: 27-May-2020 1 4:00 Encounter Diagnosis: Problem not documented Appointment; KANU LAWRENCE M.D. On: 02-Jun-2020 9:15 Encounter Diagnosis: Problem not documented Appointment; KANU LAWRENCE M.D. On: 08-Jun-2020 14:45 Encounter Diagnosis: Problem not documented
[2020-07-03] MEDS ORDERED: PROMETHAZINE 25 MG TABLET ONE (17:12)
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
[2020-07-03] MEDS ORDERED: HYDROCODONE/APAP 5/325 MG TAB ONE (18:16)
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
[2020-07-03 19:12] VITALS: TEMP 98.7
[2020-07-03 19:14] VITALS: BP 117/80; O2SAT 99
== END 2020-07-03 18:59 | disposition home or self-care (01) ==
LOC: ER 15:44
DX: S09.90XA Unspecified injury of head, initial encounter (principal); V49.50XA Passenger injured in collision with unspecified motor vehicles in traffic accident, initial encounter; Z88.0 Allergy status to penicillin; Z88.6 Allergy status to analgesic agent; Z88.8 Allergy status to other drugs, medicaments and biological substances; Z91.013 Allergy to seafood; Z91.048 Other nonmedicinal substance allergy status
CPT/HCPCS: 70450; 72125; 99284; Q0169